=== PATIENT | female | born 1995 | race Caucasian/White ===

== ENCOUNTER 2020-07-03 14:25 | Inpatient (IN) ==
[2020-07-04] MEDS ORDERED: OXYTOCIN 30 UNITS/500 ML BAG IV PRN (07:41)
[2020-07-04] MEDS: LACTATED RINGER'S 1,000 ML IV PRN (07:49)
[2020-07-04 08:05] LABS: Hematocrit (blood only) 35.6 % (37-47); Hemoglobin 11.4 g/dL (12.0-16.0); Mean Corpuscular Volume 81.1 fL (80-100); Mean Platelet Volume 11.5 fL (7.4-10.4); Platelet Count 238 K/uL (130-400); RDW Coefficient of Variation 14.4 % (11.5-14.5); RDW Standard Deviation 42.9 fL (36.4-46.3); Red Blood Count 4.39 M/uL (4.2-5.4); White Blood Count 8.78 K/uL (4.8-10.8)
[2020-07-04] MEDS ORDERED: DINOPROSTONE 10 MG INSERT PV ONE (10:22)
--- NOTE | 2020-07-04 10:26 | Obstetrical Progress Note ---
Date of Service July 04, 2020 Assessment & Plan Admission and Anticipated Discharge Date Admission Date: July 04, 2020 Subjective Admit Note 24 F P1001 at 41 weeks admitted for post dates induction of labor. No complications. GBS is negative. Covid is negative. FHT Cat 1. Cervix is finger tip/50/-3/anterior/vertex/intact. Will place Cervidil for ripening. Discussed with patient. Results & Data ([facility]) Vital Signs (Past 12 Hours) Vital Signs Pulse Resp BP 07/04/20 07:42 18 07/04/20 07:27 113 H 118/71
--- NOTE | 2020-07-04 10:46 | Obstetrical Progress Note ---
Date of Service July 04, 2020 Assessment & Plan Admission and Anticipated Discharge Date Admission Date: July 04, 2020 Physical Exam Physical Exam: Cervidil 10 mg placed vaginally. FHT Cat 1. EFW 7.5 lbs. Results & Data ([facility]) Vital Signs (Past 12 Hours) Vital Signs Pulse Resp BP 07/04/20 07:42 18 07/04/20 07:27 113 H 118/71
--- NOTE | 2020-07-04 12:29 | Anesthesiology Consultation ---
Date of Service July 04, 2020 Assessment & Plan Chart Review Chart Review: Acceptable Risk for Surgery and Patient NOT seen in Pre Admission Testing Consults Requested none ASA ASA2 Proposed Anesthesia Anesthesia Type: Labor Epidural and CSE History Height/Weight Height: 5 ft 7 in Weight: 87.09 kg Allergies Allergy/AdvReac Type Severity Reaction Status Date / Time No Known Allergies Allergy Unknown Unverified 07/04/20 08:35 Medications Home Medications Medication Instructions Recorded Confirmed Last Taken prenat.vits,aaron,oac-zbyp-wmqju 1 tab PO DAILY 07/04/20 07/04/20 07/04/20 06:45 [ Vitamin] Exercise / Class Metabolic Activity II 4-5 Yardwork/Stairs/Walk up hill Past Anesthesia History No Hx of Anesthesia Complications and No Family Hx of Anesthesia Complications History of PONV No Hx of PONV and No Hx of Motion Sickness Social History Smoking Status: Never smoker Do You Dip or Chew Tobacco: No Hx Alcohol Use: No Hx Substance Use: No Physical Exam Vital Signs Last Vital Signs Temp 37.5 C 07/04/20 07:28 Pulse 113 H 07/04/20 07:27 Resp 18 07/04/20 07:42 BP 118/71 07/04/20 07:27 Testing Laboratory Results 07/04/20 07:48
[2020-07-05] MEDS: miSOPROStoL 50 MCG TAB PO SCH ×3 (00:26→10:17)
[2020-07-05] MEDS: LACTATED RINGER'S 1,000 ML IV PRN ×3 (08:13→18:15)
[2020-07-05] MEDS ORDERED: OXYTOCIN 30 UNITS/500 ML BAG IV PRN (08:16)
--- NOTE | 2020-07-05 08:16 | History & Physical Report ---
Date of Service July 05, 2020 Assessment & Plan (1) Post-term , 40-42 weeks of gestation: 24 yo at 41 wks, IOL since yesterday Cervical ripening with regular ctxs VSS afebrile FHR reassuring GBS neg Plan to start Oxytocin and then AROM Continue to monitor Admission and Anticipated Discharge Date Admission Date: July 04, 2020 History of Present Illness Primary Care Provider: NO PCP 24 yo at 41 wks, admitted yesterday for IOL for postdates Received Cervidil and PO cytotec Now she has regular ctxs but does not feel them No complaints Her has been uncomplicated GBS neg COVID testing negative Allergies Allergy/AdvReac Type Severity Reaction Status Date / Time No Known Allergies Allergy Unknown Unverified 07/04/20 08:35 Home Medications Medication Instructions Recorded Confirmed Type prenat.vits,aaron,zvb-uvcz-lnzza 1 tab PO DAILY 07/04/20 07/04/20 History [ Vitamin] Patient History Social History Smoking Status: Never smoker Second Hand Exposure: No; Do You Dip or Chew Tobacco: No; Hx Alcohol Use: No Hx Substance Use: No Preferred Language: Arabic Communication Ability: Effective Beliefs That Will Affect Care: None marital status: Current Living Situation: Spouse Feels Safe at Home: Yes Assistive Devices: Contacts and Glasses [employer] History h/o Chlamydia in 2019, treated and negative No h/o HSV, GC Review of Systems All systems reviewed & are unremarkable except as noted in HPI & below Physical Exam Constitutional: WD/WN, vitals as above well developed and well nourished Comfortably smiling Gastrointestinal (Abdomen): normal bowel sounds, soft, nontender, no hepatosplenomegaly (Gravid, mian 7-8 lb) Genitourinary: normal external appearance OB Exam Abdomen: + vertex Manual OB Exam: + cervical dilation 2 cm, + cervical effacement 30% and + station -2 OB Exam Monitor Tracing: + external uterine monitor used and + category I Results & Data ([facility]) Vital Signs (Past 12 Hours) Vital Signs Temp Pulse Resp BP 07/05/20 07:36 37.1 C 91 H 18 118/73 07/05/20 03:45 90 117/58 L 07/05/20 03:44 37.2 C 20 07/04/20 22:54 88 113/65 07/04/20 22:51 36.4 C L 20 Laboratory Results Lab Results 07/04/20 07/04/20 07/04/20 Range/Units 07:48 08:17 08:17 WBC 8.78 (4.8-10.8) K/uL RBC 4.39 (4.2-5.4) M/uL Hgb 11.4 L (12.0-16.0) g/dL Hct 35.6 L (37-47) % MCV 81.1 (80-100) fL MCH 26.0 (25-34) pg MCHC 32.0 (32-36) g/dL RDW Std Deviation 42.9 (36.4-46.3) fL RDW Coeff of Ajay 14.4 (11.5-14.5) % Plt Count 238 (130-400) K/uL MPV 11.5 H (7.4-10.4) fL COVID-19 [facility] SARS-CoV-2, RNA, NAAT NEGATIVE (NEGATIVE)
--- NOTE | 2020-07-05 12:56 | Obstetrical Progress Note ---
Date of Service July 05, 2020 Assessment & Plan Admission and Anticipated Discharge Date Admission Date: July 04, 2020 Subjective Patient is reevaluated No pain/ ctxs/ LOF/VB +FM's Pitocin is at 12 miu/min VE; 2-3 cm/ 50%/ -2, AROM'ed, clear fluid Continue to monitor closely Results & Data ([facility]) Vital Signs (Past 12 Hours) Vital Signs Temp Pulse Resp BP 07/05/20 11:52 92 H 110/73 07/05/20 07:36 37.1 C 91 H 18 118/73 07/05/20 03:45 90 117/58 L 07/05/20 03:44 37.2 C 20
[2020-07-05] MEDS ORDERED: BUPIVACAINE 0.25% 30 ML VIAL ONE ×2 (15:40→22:44)
[2020-07-05] MEDS ORDERED: ePHEDrine sulfate 50 MG/ML AMP ONE (15:40)
[2020-07-05] MEDS ORDERED: SODIUM CHLORIDE 0.9% INJ 10 ML VIAL ONE (15:40)
[2020-07-05] MEDS ORDERED: fentaNYL 2MCG/ML ROPIVACAINE 1.25MG/ML 100 ML BAG EPI ONE (15:41)
[2020-07-05] MEDS ORDERED: fentaNYL citrate 100 MCG/2 ML VIAL ONE (15:41)
[2020-07-05] MEDS ORDERED: NALOXONE HCL 0.4 MG/1 ML VIAL/CARP IV PRN (16:25)
[2020-07-05] MEDS ORDERED: diphenhydrAMINE 50 MG/ML VIAL IV PRN (16:25)
[2020-07-05] MEDS ORDERED: ePHEDrine sulfate 50 MG/ML AMP IV PRN (16:25)
[2020-07-05] MEDS ORDERED: ONDANSETRON INJ 2 MG/ML 2 ML VIAL IV PRN (16:25)
[2020-07-05] MEDS ORDERED: NALOXONE HCL 1 MG in SODIUM CHLORIDE 0.9% 1000ML 1,000 ML IV PRN (16:25)
[2020-07-05] MEDS ORDERED: fentaNYL 2MCG/ML ROPIVACAINE 1.25MG/ML 100 ML BAG EPI PRN (16:25)
--- NOTE | 2020-07-05 16:31 | Obstetrical Progress Note ---
Date of Service July 05, 2020 Assessment & Plan Admission and Anticipated Discharge Date Admission Date: July 04, 2020 Subjective Patient is reevaluated She received epidural for pain Comfortable now, plans to rest FHR categ I Ctxs q 1-3 min Continue to monitor closely Results & Data ([facility]) Vital Signs (Past 12 Hours) Vital Signs Temp Pulse Resp BP Pulse Ox 07/05/20 16:28 106 H 92 07/05/20 16:27 36.7 C 18 07/05/20 16:26 123 H 116/74 07/05/20 16:25 108 H 100 07/05/20 16:20 104 H 100 07/05/20 16:19 111 H 121/63 07/05/20 16:17 107 H 105/59 L 07/05/20 16:15 106 H 106/60 99 07/05/20 16:13 111 H 107/63 07/05/20 16:11 104 H 104/56 L 07/05/20 16:10 108 H 99 07/05/20 16:09 115 H 89 L 07/05/20 16:07 101 H 125/76 07/05/20 16:05 86 121/78 99 07/05/20 16:00 107 H 100 07/05/20 15:59 105 H 91 07/05/20 15:55 104 H 94 07/05/20 13:29 90 127/82 07/05/20 11:52 92 H 110/73 07/05/20 07:36 37.1 C 91 H 18 118/73
--- NOTE | 2020-07-05 19:57 | Obstetrical Progress Note ---
Date of Service July 05, 2020 Assessment & Plan Admission and Anticipated Discharge Date Admission Date: July 04, 2020 Subjective Patient is reevaluated She feels well, no complaints She took a nap VSS Afebrile FHR 130's, accel and increased variability after VE, scalp stimulation Cervix: 3-4 cm/ 70-80%/ -2, small caput Pitocin is at 18 miu /min ctxs q 2-3 min Continue to monitor Will try position changes Results & Data ([facility]) Vital Signs (Past 12 Hours) Vital Signs Temp Pulse Resp BP Pulse Ox 07/05/20 19:50 111 H 96 07/05/20 19:45 110 H 97 07/05/20 19:43 120 H 107/59 L 07/05/20 19:40 112 H 96 07/05/20 19:35 114 H 96 07/05/20 19:30 106 H 20 96 07/05/20 19:29 111 H 107/63 07/05/20 19:25 107 H 96 07/05/20 19:20 113 H 91 07/05/20 19:15 105 H 94 07/05/20 19:14 109 H 110/70 07/05/20 19:10 109 H 96 07/05/20 19:05 100 H 96 07/05/20 19:00 101 H 97 07/05/20 18:57 37.3 C 18 07/05/20 18:55 111 H 95 07/05/20 18:53 101 H 85 L 07/05/20 18:51 98 H 105/62 07/05/20 18:50 95 H 96 07/05/20 18:45 90 97 07/05/20 18:42 96 H 105/64 07/05/20 18:40 84 97 07/05/20 18:35 101 H 95 07/05/20 18:31 95 H 106/68 07/05/20 18:30 98 H 96 07/05/20 18:25 92 H 96 07/05/20 18:21 90 99/61 L 07/05/20 18:20 95 H 96 07/05/20 18:18 96 H 85 L 07/05/20 18:15 90 98 07/05/20 18:12 102 H 88 L 07/05/20 18:11 93 H 99/62 L 07/05/20 18:10 87 100 02/24/21 18:05 87 98 07/05/20 18:02 93 H 96/59 L 07/05/20 18:00 90 98 07/05/20 17:55 95 H 98 07/05/20 17:51 85 98/61 L 07/05/20 17:50 92 H 98 07/05/20 17:45 93 H 98 07/05/20 17:41 82 101/61 07/05/20 17:40 90 99 07/05/20 17:35 92 H 100 07/05/20 17:32 88 100/62 07/05/20 17:30 82 100 07/05/20 17:25 99 H 96 07/05/20 17:21 83 100/61 07/05/20 17:20 76 99 07/05/20 17:15 85 99 07/05/20 17:12 79 89 L 07/05/20 17:11 92/63 L 07/05/20 17:10 72 100 07/05/20 17:06 103 H 85 L 07/05/20 17:05 96 H 94 07/05/20 17:01 95 H 95/60 L 07/05/20 17:00 99 H 100 07/05/20 16:55 100 H 99 07/05/20 16:51 100 H 102/64 07/05/20 16:50 82 98 07/05/20 16:45 112 H 78 L 07/05/20 16:44 110 H 85 L 07/05/20 16:42 88 114/58 L 07/05/20 16:40 94 H 100 07/05/20 16:35 98 H 96 07/05/20 16:33 95 H 88 L 07/05/20 16:30 91 H 123/59 L 100 07/05/20 16:28 106 H 92 07/05/20 16:27 36.7 C 18 07/05/20 16:26 123 H 116/74 07/05/20 16:25 108 H 100 07/05/20 16:20 104 H 100 07/05/20 16:19 111 H 121/63 07/05/20 16:17 107 H 105/59 L 07/05/20 16:15 106 H 106/60 99 07/05/20 16:13 111 H 107/63 07/05/20 16:11 104 H 104/56 L 07/05/20 16:10 108 H 99 07/05/20 16:09 115 H 89 L 07/05/20 16:07 101 H 125/76 07/05/20 16:05 86 121/78 99 07/05/20 16:00 107 H 100 07/05/20 15:59 105 H 91 07/05/20 15:55 104 H 94 07/05/20 13:29 90 127/82 07/05/20 11:52 92 H 110/73
--- NOTE | 2020-07-05 21:45 | Obstetrical Progress Note ---
Date of Service July 05, 2020 Assessment & Plan Admission and Anticipated Discharge Date Admission Date: July 04, 2020 Subjective Patient feels rectal pressure VE; 8/ 70%, cervix swollen at anterior and right side, head at 0 to +1 with contraction, ant. fontanelle at 9 o'clock position FHR categ I Continue to monitor closely Results & Data ([facility]) Vital Signs (Past 12 Hours) Vital Signs Temp Pulse Resp BP Pulse Ox 07/05/20 21:40 112 H 97 07/05/20 21:35 106 H 95 07/05/20 21:30 102 H 20 95 07/05/20 21:28 98 H 107/64 07/05/20 21:25 113 H 95 07/05/20 21:20 105 H 96 07/05/20 21:15 102 H 97 07/05/20 21:14 106 H 107/69 07/05/20 21:10 99 H 96 07/05/20 21:05 100 H 96 07/05/20 21:00 37.2 C 100 H 20 96 07/05/20 20:59 100 H 124/77 07/05/20 20:55 105 H 97 07/05/20 20:50 99 H 96 07/05/20 20:45 97 H 92 07/05/20 20:43 99 H 131/80 07/05/20 20:41 102 H 84 L 07/05/20 20:40 98 H 95 07/05/20 20:35 94 H 96 07/05/20 20:30 93 H 20 95 07/05/20 20:28 96 H 97/57 L 07/05/20 20:25 101 H 96 07/05/20 20:20 97 H 96 07/05/20 20:15 109 H 95 07/05/20 20:14 115 H 115/74 07/05/20 20:10 105 H 96 07/05/20 20:05 102 H 95 07/05/20 20:00 126 H 20 123/69 93 07/05/20 19:55 108 H 94 07/05/20 19:50 111 H 96 07/05/20 19:45 110 H 97 07/05/20 19:43 120 H 107/59 L 07/05/20 19:40 112 H 96 07/05/20 19:35 114 H 96 07/05/20 19:30 106 H 20 96 07/05/20 19:29 111 H 107/63 07/05/20 19:25 107 H 96 07/05/20 19:20 113 H 91 07/05/20 19:15 105 H 94 07/05/20 19:14 109 H 110/70 07/05/20 19:10 109 H 96 07/05/20 19:05 100 H 96 07/05/20 19:00 101 H 97 07/05/20 18:57 37.3 C 18 07/05/20 18:55 111 H 95 07/05/20 18:53 101 H 85 L 07/05/20 18:51 98 H 105/62 07/05/20 18:50 95 H 96 07/05/20 18:45 90 97 07/05/20 18:42 96 H 105/64 07/05/20 18:40 84 97 07/05/20 18:35 101 H 95 07/05/20 18:31 95 H 106/68 07/05/20 18:30 98 H 96 07/05/20 18:25 92 H 96 07/05/20 18:21 90 99/61 L 07/05/20 18:20 95 H 96 07/05/20 18:18 96 H 85 L 07/05/20 18:15 90 98 07/05/20 18:12 102 H 88 L 07/05/20 18:11 93 H 99/62 L 07/05/20 18:10 87 100 07/05/20 18:05 87 98 07/05/20 18:02 93 H 96/59 L 07/05/20 18:00 90 98 07/05/20 17:55 95 H 98 07/05/20 17:51 85 98/61 L 07/05/20 17:50 92 H 98 07/05/20 17:45 93 H 98 07/05/20 17:41 82 101/61 07/05/20 17:40 90 99 07/05/20 17:35 92 H 100 07/05/20 17:32 88 100/62 07/05/20 17:30 82 100 07/05/20 17:25 99 H 96 07/05/20 17:21 83 100/61 07/05/20 17:20 76 99 07/05/20 17:15 85 99 07/05/20 17:12 79 89 L 07/05/20 17:11 92/63 L 07/05/20 17:10 72 100 07/05/20 17:06 103 H 85 L 07/05/20 17:05 96 H 94 07/05/20 17:01 95 H 95/60 L 07/05/20 17:00 99 H 100 07/05/20 16:55 100 H 99 07/05/20 16:51 100 H 102/64 07/05/20 16:50 82 98 07/05/20 16:45 112 H 78 L 07/05/20 16:44 110 H 85 L 07/05/20 16:42 88 114/58 L 07/05/20 16:40 94 H 100 07/05/20 16:35 98 H 96 07/05/20 16:33 95 H 88 L 07/05/20 16:30 91 H 123/59 L 100 07/05/20 16:28 106 H 92 07/05/20 16:27 36.7 C 18 07/05/20 16:26 123 H 116/74 07/05/20 16:25 108 H 100 07/05/20 16:20 104 H 100 07/05/20 16:19 111 H 121/63 07/05/20 16:17 107 H 105/59 L 07/05/20 16:15 106 H 106/60 99 07/05/20 16:13 111 H 107/63 07/05/20 16:11 104 H 104/56 L 07/05/20 16:10 108 H 99 07/05/20 16:09 115 H 89 L 07/05/20 16:07 101 H 125/76 07/05/20 16:05 86 121/78 99 07/05/20 16:00 107 H 100 07/05/20 15:59 105 H 91 07/05/20 15:55 104 H 94 07/05/20 13:29 90 127/82 07/05/20 11:52 92 H 110/73
[2020-07-05] MEDS ORDERED: MINERAL OIL 30 ML UDC ONE (23:16)
--- NOTE | 2020-07-05 23:44 | Obstetrical Progress Note ---
Date of Service July 05, 2020 Assessment & Plan Admission and Anticipated Discharge Date Admission Date: July 04, 2020 Subjective Patient felt pressure and wanted to push She has been pushing for the last hour FHR categ I, except early decels ( some with late component) with ctxs but otherwise good variability VE; 10/100%/+2, OA Continue to monitor closely and anticipate Results & Data ([facility] [place]) Vital Signs (Past 12 Hours) Vital Signs Temp Pulse Resp BP Pulse Ox 07/05/20 23:40 134 H 99 07/05/20 23:38 126 H 81 L 07/05/20 23:37 153 H 117/84 07/05/20 23:35 37.6 C H 137 H 95 07/05/20 23:32 112 H 83 L 07/05/20 23:30 143 H 18 100 07/05/20 23:25 124 H 99 07/05/20 23:21 118 H 129/56 L 07/05/20 23:20 96 H 79 L 07/05/20 23:15 165 H 84 L 07/05/20 23:10 125 H 85 L 07/05/20 23:09 118 H 88 L 07/05/20 23:06 122 H 116/72 07/05/20 23:05 127 H 81 L 07/05/20 23:00 37.2 C 113 H 20 84 L 07/05/20 22:58 114 H 83 L 07/05/20 22:55 110 H 97 07/05/20 22:53 109 H 110/77 78 L 07/05/20 22:51 108 H 104/71 07/05/20 22:50 134 H 98 07/05/20 22:47 116 H 172/66 H 07/05/20 22:45 113 H 98 07/05/20 22:43 121 H 119/71 07/05/20 22:42 131 H 87 L 07/05/20 22:40 123 H 98 07/05/20 22:35 128 H 96 07/05/20 22:30 130 H 18 97 07/05/20 22:29 144 H 125/85 07/05/20 22:25 119 H 99 07/05/20 22:20 117 H 94 07/05/20 22:15 121 H 96 07/05/20 22:13 120 H 99/50 L 07/05/20 22:11 127 H 86 L 07/05/20 22:10 131 H 96 07/05/20 22:05 118 H 97 07/05/20 22:00 106 H 18 96 07/05/20 21:59 111 H 117/73 07/05/20 21:55 105 H 97 07/05/20 21:50 119 H 96 07/05/20 21:45 111 H 93 07/05/20 21:44 100 H 117/74 07/05/20 21:40 112 H 97 07/05/20 21:35 106 H 95 07/05/20 21:30 102 H 20 95 07/05/20 21:28 98 H 107/64 07/05/20 21:25 113 H 95 07/05/20 21:20 105 H 96 07/05/20 21:15 102 H 97 07/05/20 21:14 106 H 107/69 07/05/20 21:10 99 H 96 07/05/20 21:05 100 H 96 07/05/20 21:00 37.2 C 100 H 20 96 07/05/20 20:59 100 H 124/77 07/05/20 20:55 105 H 97 07/05/20 20:50 99 H 96 07/05/20 20:45 97 H 92 07/05/20 20:43 99 H 131/80 07/05/20 20:41 102 H 84 L 07/05/20 20:40 98 H 95 07/05/20 20:35 94 H 96 07/05/20 20:30 93 H 20 95 07/05/20 20:28 96 H 97/57 L 07/05/20 20:25 101 H 96 07/05/20 20:20 97 H 96 07/05/20 20:15 109 H 95 07/05/20 20:14 115 H 115/74 07/05/20 20:10 105 H 96 07/05/20 20:05 102 H 95 07/05/20 20:00 126 H 20 123/69 93 07/05/20 19:55 108 H 94 07/05/20 19:50 111 H 96 07/05/20 19:45 110 H 97 07/05/20 19:43 120 H 107/59 L 07/05/20 19:40 112 H 96 07/05/20 19:35 114 H 96 07/05/20 19:30 106 H 20 96 07/05/20 19:29 111 H 107/63 07/05/20 19:25 107 H 96 07/05/20 19:20 113 H 91 07/05/20 19:15 105 H 94 07/05/20 19:14 109 H 110/70 07/05/20 19:10 109 H 96 07/05/20 19:05 100 H 96 07/05/20 19:00 101 H 97 07/05/20 18:57 37.3 C 18 07/05/20 18:55 111 H 95 07/05/20 18:53 101 H 85 L 07/05/20 18:51 98 H 105/62 07/05/20 18:50 95 H 96 07/05/20 18:45 90 97 07/05/20 18:42 96 H 105/64 07/05/20 18:40 84 97 07/05/20 18:35 101 H 95 07/05/20 18:31 95 H 106/68 07/05/20 18:30 98 H 96 07/05/20 18:25 92 H 96 07/05/20 18:21 90 99/61 L 07/05/20 18:20 95 H 96 07/05/20 18:18 96 H 85 L 07/05/20 18:15 90 98 07/05/20 18:12 102 H 88 L 07/05/20 18:11 93 H 99/62 L 07/05/20 18:10 87 100 07/05/20 18:05 87 98 07/05/20 18:02 93 H 96/59 L 07/05/20 18:00 90 98 07/05/20 17:55 95 H 98 07/05/20 17:51 85 98/61 L 07/05/20 17:50 92 H 98 07/05/20 17:45 93 H 98 07/05/20 17:41 82 101/61 07/05/20 17:40 90 99 07/05/20 17:35 92 H 100 07/05/20 17:32 88 100/62 07/05/20 17:30 82 100 07/05/20 17:25 99 H 96 07/05/20 17:21 83 100/61 07/05/20 17:20 76 99 07/05/20 17:15 85 99 07/05/20 17:12 79 89 L 07/05/20 17:11 92/63 L 07/05/20 17:10 72 100 07/05/20 17:06 103 H 85 L 07/05/20 17:05 96 H 94 07/05/20 17:01 95 H 95/60 L 07/05/20 17:00 99 H 100 07/05/20 16:55 100 H 99 07/05/20 16:51 100 H 102/64 07/05/20 16:50 82 98 07/05/20 16:45 112 H 78 L 07/05/20 16:44 110 H 85 L 07/05/20 16:42 88 114/58 L 07/05/20 16:40 94 H 100 07/05/20 16:35 98 H 96 07/05/20 16:33 95 H 88 L 07/05/20 16:30 91 H 123/59 L 100 07/05/20 16:28 106 H 92 07/05/20 16:27 36.7 C 18 07/05/20 16:26 123 H 116/74 07/05/20 16:25 108 H 100 07/05/20 16:20 104 H 100 07/05/20 16:19 111 H 121/63 07/05/20 16:17 107 H 105/59 L 07/05/20 16:15 106 H 106/60 99 07/05/20 16:13 111 H 107/63 07/05/20 16:11 104 H 104/56 L 07/05/20 16:10 108 H 99 07/05/20 16:09 115 H 89 L 07/05/20 16:07 101 H 125/76 07/05/20 16:05 86 121/78 99 07/05/20 16:00 107 H 100 07/05/20 15:59 105 H 91 07/05/20 15:55 104 H 94 07/05/20 13:29 90 127/82 07/05/20 11:52 92 H 110/73
--- NOTE | 2020-07-06 00:34 | Obstetrical Progress Note ---
Date of Service July 06, 2020 Assessment & Plan Admission and Anticipated Discharge Date Admission Date: July 04, 2020 Subjective Patient has been pushing with good efforts Vomited x3, received IV zofran and feels better Temp: 100 F, fees warm during VE FHR 170's between ctxs Maternal pulse 120's Suspected intraamniotic infection Plan to start IV AB's and continue pushing Results & Data ([facility]) Vital Signs (Past 12 Hours) Vital Signs Temp Pulse Resp BP Pulse Ox 07/06/20 00:27 124 H 96 07/06/20 00:22 124 H 97 07/06/20 00:20 127 H 120/81 07/06/20 00:17 121 H 97 07/06/20 00:15 37.8 C H 20 07/06/20 00:12 140 H 99 07/06/20 00:07 135 H 95 07/06/20 00:02 123 H 99 07/06/20 00:01 132 H 81 L 07/06/20 00:00 20 07/05/20 23:57 116 H 93 07/05/20 23:52 128 H 98 07/05/20 23:51 123 H 123/81 07/05/20 23:50 115 H 85 L 07/05/20 23:46 131 H 97 07/05/20 23:43 117 H 86 L 07/05/20 23:40 134 H 99 07/05/20 23:38 126 H 81 L 07/05/20 23:37 153 H 117/84 07/05/20 23:35 37.6 C H 137 H 95 07/05/20 23:32 112 H 83 L 07/05/20 23:30 143 H 18 100 07/05/20 23:25 124 H 99 07/05/20 23:21 118 H 129/56 L 07/05/20 23:20 96 H 79 L 07/05/20 23:15 165 H 84 L 07/05/20 23:10 125 H 85 L 07/05/20 23:09 118 H 88 L 07/05/20 23:06 122 H 116/72 07/05/20 23:05 127 H 81 L 07/05/20 23:00 37.2 C 113 H 20 84 L 07/05/20 22:58 114 H 83 L 07/05/20 22:55 110 H 97 07/05/20 22:53 109 H 110/77 78 L 07/05/20 22:51 108 H 104/71 07/05/20 22:50 134 H 98 07/05/20 22:47 116 H 172/66 H 07/05/20 22:45 113 H 98 07/05/20 22:43 121 H 119/71 07/05/20 22:42 131 H 87 L 07/05/20 22:40 123 H 98 07/05/20 22:35 128 H 96 07/05/20 22:30 130 H 18 97 07/05/20 22:29 144 H 125/85 07/05/20 22:25 119 H 99 07/05/20 22:20 117 H 94 07/05/20 22:15 121 H 96 07/05/20 22:13 120 H 99/50 L 07/05/20 22:11 127 H 86 L 07/05/20 22:10 131 H 96 07/05/20 22:05 118 H 97 07/05/20 22:00 106 H 18 96 07/05/20 21:59 111 H 117/73 07/05/20 21:55 105 H 97 07/05/20 21:50 119 H 96 07/05/20 21:45 111 H 93 07/05/20 21:44 100 H 117/74 07/05/20 21:40 112 H 97 07/05/20 21:35 106 H 95 07/05/20 21:30 102 H 20 95 07/05/20 21:28 98 H 107/64 07/05/20 21:25 113 H 95 07/05/20 21:20 105 H 96 07/05/20 21:15 102 H 97 07/05/20 21:14 106 H 107/69 07/05/20 21:10 99 H 96 07/05/20 21:05 100 H 96 07/05/20 21:00 37.2 C 100 H 20 96 07/05/20 20:59 100 H 124/77 07/05/20 20:55 105 H 97 07/05/20 20:50 99 H 96 07/05/20 20:45 97 H 92 07/05/20 20:43 99 H 131/80 07/05/20 20:41 102 H 84 L 07/05/20 20:40 98 H 95 07/05/20 20:35 94 H 96 07/05/20 20:30 93 H 20 95 07/05/20 20:28 96 H 97/57 L 07/05/20 20:25 101 H 96 07/05/20 20:20 97 H 96 07/05/20 20:15 109 H 95 07/05/20 20:14 115 H 115/74 07/05/20 20:10 105 H 96 07/05/20 20:05 102 H 95 07/05/20 20:00 126 H 20 123/69 93 07/05/20 19:55 108 H 94 07/05/20 19:50 111 H 96 07/05/20 19:45 110 H 97 07/05/20 19:43 120 H 107/59 L 07/05/20 19:40 112 H 96 07/05/20 19:35 114 H 96 07/05/20 19:30 106 H 20 96 07/05/20 19:29 111 H 107/63 07/05/20 19:25 107 H 96 07/05/20 19:20 113 H 91 07/05/20 19:15 105 H 94 07/05/20 19:14 109 H 110/70 07/05/20 19:10 109 H 96 07/05/20 19:05 100 H 96 07/05/20 19:00 101 H 97 07/05/20 18:57 37.3 C 18 07/05/20 18:55 111 H 95 07/05/20 18:53 101 H 85 L 07/05/20 18:51 98 H 105/62 07/05/20 18:50 95 H 96 07/05/20 18:45 90 97 07/05/20 18:42 96 H 105/64 07/05/20 18:40 84 97 07/05/20 18:35 101 H 95 07/05/20 18:31 95 H 106/68 07/05/20 18:30 98 H 96 07/05/20 18:25 92 H 96 07/05/20 18:21 90 99/61 L 07/05/20 18:20 95 H 96 07/05/20 18:18 96 H 85 L 07/05/20 18:15 90 98 07/05/20 18:12 102 H 88 L 07/05/20 18:11 93 H 99/62 L 07/05/20 18:10 87 100 07/05/20 18:05 87 98 07/05/20 18:02 93 H 96/59 L 07/05/20 18:00 90 98 07/05/20 17:55 95 H 98 07/05/20 17:51 85 98/61 L 07/05/20 17:50 92 H 98 07/05/20 17:45 93 H 98 07/05/20 17:41 82 101/61 07/05/20 17:40 90 99 07/05/20 17:35 92 H 100 07/05/20 17:32 88 100/62 07/05/20 17:30 82 100 07/05/20 17:25 99 H 96 07/05/20 17:21 83 100/61 07/05/20 17:20 76 99 07/05/20 17:15 85 99 07/05/20 17:12 79 89 L 07/05/20 17:11 92/63 L 07/05/20 17:10 72 100 07/05/20 17:06 103 H 85 L 07/05/20 17:05 96 H 94 07/05/20 17:01 95 H 95/60 L 07/05/20 17:00 99 H 100 07/05/20 16:55 100 H 99 07/05/20 16:51 100 H 102/64 07/05/20 16:50 82 98 07/05/20 16:45 112 H 78 L 07/05/20 16:44 110 H 85 L 07/05/20 16:42 88 114/58 L 07/05/20 16:40 94 H 100 07/05/20 16:35 98 H 96 07/05/20 16:33 95 H 88 L 07/05/20 16:30 91 H 123/59 L 100 07/05/20 16:28 106 H 92 07/05/20 16:27 36.7 C 18 07/05/20 16:26 123 H 116/74 07/05/20 16:25 108 H 100 07/05/20 16:20 104 H 100 07/05/20 16:19 111 H 121/63 07/05/20 16:17 107 H 105/59 L 07/05/20 16:15 106 H 106/60 99 07/05/20 16:13 111 H 107/63 07/05/20 16:11 104 H 104/56 L 07/05/20 16:10 108 H 99 07/05/20 16:09 115 H 89 L 07/05/20 16:07 101 H 125/76 07/05/20 16:05 86 121/78 99 07/05/20 16:00 107 H 100 07/05/20 15:59 105 H 91 07/05/20 15:55 104 H 94 07/05/20 13:29 90 127/82
[2020-07-06] MEDS: LACTATED RINGER'S 1,000 ML IV PRN (00:35)
[2020-07-06] MEDS: ceFAZolin 2000MG 2,000 MG/15 ML SYR IV SCH ×3 (00:43→17:07)
[2020-07-06] MEDS: CLINDAMYCIN 900 MG in DEXTROSE 5% 50 ML IV SCH ×3 (00:47→17:46)
[2020-07-06] MEDS ORDERED: bisacodyL 10 MG SUPP PR PRN (02:30)
[2020-07-06] MEDS ORDERED: SUPERCREAM 0.870% 15 GM JAR EXT PRN (02:30)
[2020-07-06] MEDS ORDERED: DIPHTHERIA/TETANUS/PERTUSSIS 0.5 ML SYR/VIAL IM ONE (02:30)
[2020-07-06] MEDS ORDERED: oxyCODONE/ACETAMINOPHEN 5mg/325mg TAB PO PRN (02:30)
[2020-07-06] MEDS ORDERED: MEASLES, MUMPS & RUBELLA VIRUS VIAL SQ ONE (02:30)
[2020-07-06] MEDS ORDERED: ACETAMINOPHEN 325 MG TAB PO PRN (02:30)
[2020-07-06] MEDS ORDERED: BENZOCAINE 20% AER SPR 82.5 GM CAN EXT PRN (02:30)
[2020-07-06] MEDS ORDERED: HYDROCORTISONE ACETATE 25 MG SUPP PR PRN (02:30)
[2020-07-06] MEDS ORDERED: OXYTOCIN 30 UNITS/500 ML BAG IV PRN (02:30)
--- NOTE | 2020-07-06 02:59 | Delivery Summary ---
DATE OF OPERATION: 07/06/2020 TIME OF DELIVERY OF BABY: 01:57 a.m. DETAILS OF DELIVERY: The patient was found to be fully dilated and desired to push. She pushed for about 3 hours and delivered the head in direct occiput posterior position. Baby's face was up and shoulders were delivered with minimal traction. There was a nuchal cord around the neck x2. Those were loose and they were reduced. Baby was handed to the mother where mouth and nose were suctioned. Cord was clamped x2 and cut. Baby was handed off to waiting pediatric team. Cord blood was obtained. Vagina and perineum were checked for lacerations. There was a second-degree perineal laceration, which was extending into the right vaginal wall. Rectal exam was done. It was confirmed to be second degree, good sphincter tone was noted. The perineal body muscles were brought together with 2-0 Vicryl with [id number] stitches x3 and then the vagina was repaired with 2-0 Vicryl in a running locked fashion, skin in a subcuticular fashion. The placenta was found to be in the vagina, delivered spontaneous as intact and complete. Uterus was explored, found to be full of clots. They were emptied. About 300 mL of clots were emptied. Fundus was massaged. IV Pitocin was started and it firmed up. The vagina was checked again. There was oozing on the middle of the repair. It was repaired with 2-0 Vicryl and then Caesar powder was applied to prevent future oozing. Excellent hemostasis was achieved. Mom and baby tolerated the procedure well. Sponge, lap, needle count was correct x2. Baby was a viable male infant, Apgars were 3/6/10 at 1st, 5th and 10th minutes respectively. Weight was 3708 gr. No complications happened. I was present during whole procedure. I attest to the content of the Intraoperative Record and any orders documented therein. Any exceptions are noted below. VERND
[2020-07-06] MEDS: IBUPROFEN 600 MG TAB PO PRN ×3 (03:16→20:53)
--- NOTE | 2020-07-06 04:14 | Anesthesia Procedure Note ---
Date of Service July 06, 2020 Anesthesia Post Epidural Note Vital Signs Vital Signs: Temp Pulse Resp BP Pulse Ox 37.9 C H 99 H 18 105/75 99 07/06/20 01:13 07/06/20 04:12 07/06/20 03:50 07/06/20 04:12 07/06/20 02:22 Pain Intensity Right Abdomen: Pain Intensity: 0 Notes Mental Status: alert / awake / arousable Nausea / Vomiting: adequately controlled Pain: adequately controlled Airway Patency, RR, SpO2: stable & adequate BP & HR: stable & adequate Hydration State: stable & adequate Neuraxial Anesthesia: was administered and sensory block is resolving Anesthetic Complications: no major complications apparent and Pt Satisfied with anesthetic care Epidural: Removed without complications and With tip intact
[2020-07-06] MEDS ORDERED: FERROUS SULFATE 325 MG TAB PO SCH (08:00)
[2020-07-06] MEDS: PRENATAL VITAMIN 1 TAB PO SCH (08:58)
[2020-07-06] MEDS: DOCUSATE SODIUM 100 MG CAP PO SCH ×2 (08:58→20:53)
[2020-07-06] MEDS ORDERED: Nursing to Pharmacy Communication SCH (23:30)
[2020-07-07] MEDS: ceFAZolin 2000MG 2,000 MG/15 ML SYR IV SCH (00:40)
[2020-07-07] MEDS: CLINDAMYCIN 900 MG in DEXTROSE 5% 50 ML IV SCH (00:44)
[2020-07-07] MEDS: IBUPROFEN 600 MG TAB PO PRN ×2 (04:46→14:03)
[2020-07-07 06:15] LABS: Hemoglobin 8.8 g/dL (12.0-16.0); Mean Corpuscular Hemoglobin 26.2 pg (25-34); Mean Corpuscular Hgb Conc 32.6 g/dL (32-36); Mean Corpuscular Volume 80.4 fL (80-100); Mean Platelet Volume 11.3 fL (7.4-10.4); Platelet Count 236 K/uL (130-400); RDW Coefficient of Variation 14.9 % (11.5-14.5); RDW Standard Deviation 43.7 fL (36.4-46.3); Red Blood Count 3.36 M/uL (4.2-5.4); White Blood Count 18.11 K/uL (4.8-10.8)
[2020-07-07] MEDS: DOCUSATE SODIUM 100 MG CAP PO SCH ×2 (07:39→20:47)
[2020-07-07] MEDS: PRENATAL VITAMIN 1 TAB PO SCH (07:40)
--- NOTE | 2020-07-07 08:03 | Obstetrical Progress Note ---
Date of Service July 07, 2020 Assessment & Plan Admission and Anticipated Discharge Date Admission Date: July 04, 2020 Subjective Patient is seen and examined. She feels well, no complaints. Ambulating without dizziness Voiding without difficulty Tolerating regular diet with out N&V Bleeding is minimal No fever/ chills/ CP/ SOB/ N&V/ Leg pain Breast feeding without problems Vital Signs Temp Pulse Resp BP Pulse Ox 07/07/20 04:45 36.4 C L 88 16 93/58 L 98 07/07/20 00:10 36.5 C 84 17 94/58 L 97 07/06/20 19:45 36.6 C 92 H 20 106/69 07/06/20 15:30 36.7 C 110 H 20 115/66 99 07/06/20 12:18 37 C 96 H 114/72 99 Intake and Output 07/06/20 07/07/20 07/07/20 22:59 06:59 14:59 Intake Total 56 / 168 56 / 168 Balance 56 / 168 56 / 168 Intake: IV 56 / 168 56 / 168 Cleocin 900 mg In D5w 50 ml @ 56 / 168 56 / 168 112 mls/hr IV Q8H [facility] Rx#: [id number] Lab Results 07/04/20 07/04/20 07/04/20 Range/Units 07:48 08:17 08:17 WBC 8.78 (4.8-10.8) K/uL RBC 4.39 (4.2-5.4) M/uL Hgb 11.4 L (12.0-16.0) g/dL Hct 35.6 L (37-47) % MCV 81.1 (80-100) fL MCH 26.0 (25-34) pg MCHC 32.0 (32-36) g/dL RDW Std Deviation 42.9 (36.4-46.3) fL RDW Coeff of Ajay 14.4 (11.5-14.5) % Plt Count 238 (130-400) K/uL MPV 11.5 H (7.4-10.4) fL COVID-19 Eval [facility] SARS-CoV-2, RNA, NAAT NEGATIVE (NEGATIVE) 07/07/20 Range/Units 05:52 WBC 18.11 H (4.8-10.8) K/uL RBC 3.36 L (4.2-5.4) M/uL Hgb 8.8 L (12.0-16.0) g/dL Hct 27.0 L (37-47) % MCV 80.4 (80-100) fL MCH 26.2 (25-34) pg MCHC 32.6 (32-36) g/dL RDW Std Deviation 43.7 (36.4-46.3) fL RDW Coeff of Ajay 14.9 H (11.5-14.5) % Plt Count 236 (130-400) K/uL MPV 11.3 H (7.4-10.4) fL COVID-19 Eval Order SARS-CoV-2, RNA, NAAT (NEGATIVE) PE: General: Alert, orientedx3, NAD Abd: soft, NT, fundus firm, below Umbilicus Perineum intact, Lochia rubra minimal Ext; NT, no edema AP: 24 yo s/p , ppd# 1 VSS Afebrile doing well Anemic, asymptomatic Will increase iron to bid Continue routine care All questions were answered D/C home tomorrow Results & Data ([facility]) Vital Signs (Past 12 Hours) Vital Signs Temp Pulse Resp BP Pulse Ox 07/07/20 04:45 36.4 C L 88 16 93/58 L 98 07/07/20 00:10 36.5 C 84 17 94/58 L 97
[2020-07-07] MEDS: FERROUS SULFATE 325 MG TAB PO SCH ×2 (08:20→17:05)
[2020-07-07] MEDS ORDERED: bisacodyL 5 MG TABEC PO SCH (20:00)
[2020-07-08] MEDS: IBUPROFEN 600 MG TAB PO PRN ×2 (00:56→06:43)
[2020-07-08 06:36] LABS: Basophils # (auto) 0.03 K/uL (0-0.2); Basophils % (auto) 0.2 %; Eosinophils # (auto) 0.17 K/uL (0-0.5); Eosinophils % (auto) 1.4 %; Hemoglobin 9.1 g/dL (12.0-16.0); Immature Granulocytes # (auto) 0.05 K/uL (0.00-0.02); Immature Granulocytes % (auto) 0.4 %; Lymphocytes # (auto) 2.37 K/uL (1.2-3.4); Lymphocytes % (auto) 19.1 %; Mean Corpuscular Hemoglobin 26.3 pg (25-34); Mean Corpuscular Hgb Conc 32.5 g/dL (32-36); Mean Corpuscular Volume 80.9 fL (80-100); Mean Platelet Volume 10.9 fL (7.4-10.4); Monocytes # (auto) 0.81 K/uL (0.11-0.59); Monocytes % (auto) 6.5 %; Neutrophils # (auto) 8.95 K/uL (1.4-6.5); Neutrophils % (auto) 72.4 %; Platelet Count 249 K/uL (130-400); RDW Coefficient of Variation 14.9 % (11.5-14.5); RDW Standard Deviation 43.8 fL (36.4-46.3); Red Blood Count 3.46 M/uL (4.2-5.4); White Blood Count 12.38 K/uL (4.8-10.8)
[2020-07-08] MEDS: PRENATAL VITAMIN 1 TAB PO SCH (09:16)
[2020-07-08] MEDS: DOCUSATE SODIUM 100 MG CAP PO SCH (09:16)
[2020-07-08] MEDS: FERROUS SULFATE 325 MG TAB PO SCH (09:16)
--- NOTE | 2020-07-08 10:37 | Obstetrical Progress Note ---
Date of Service July 08, 2020 Assessment & Plan (1) Normal course: PPd #2 pt doing well dsich home with instructions Subjective Ambulation: ambulating normally Voiding: no voiding problems Passing Gas:: Yes Diet Tolerance:: regular diet Lochia:: Small Feeding Type:: breast feeding Review of Systems All systems reviewed & are unremarkable except as noted in HPI & below Physical Exam Constitutional WD/WN, vitals as above well developed and well nourished Eyes PERRL, conjunctivae normal, anicteric sclerae Neck trachea midline, no thyromegaly Respiratory normal respiratory effort, lungs clear to auscultation Auscultation: no crackles, no rales and no wheezes Cardiovascular RRR, no murmur, no edema Gastrointestinal (Abdomen) normal bowel sounds, soft, nontender, no hepatosplenomegaly Uterus is below umbilicus Musculoskeletal no cyanosis or clubbing, extremities motor strength 5/5 Skin no rashes, warm and dry Neurologic patellar DTR's 2+ bilat, sensation intact Psychiatric A+Ox3, euthymic affect Genitourinary normal external appearance Results & Data ([facility]) Vital Signs (Past 12 Hours) Vital Signs Temp Pulse Resp BP Pulse Ox 07/08/20 08:45 36.8 C 103 H 18 124/87 07/08/20 00:40 36.4 C L 84 17 112/72 98
== END 2020-07-08 13:35 | disposition home or self-care (01) | DRG 807 ==
LOC: 4S1 07-04 07:14 → 4S2 07-06 04:51

== ENCOUNTER 2023-02-27 07:10 | Inpatient (IN) ==
[2023-02-27] MEDS ORDERED: OXYTOCIN 30 UNITS/500 ML BAG IV PRN ×3 (08:23→18:21)
[2023-02-27] MEDS ORDERED: LIDOCAINE 1% LOCAL 20 ML VIAL INFIL PRN (08:23)
--- NOTE | 2023-02-27 08:28 | History & Physical Report ---
Date of Service February 27, 2023 Assessment & Plan (1) Post-term , 40-42 weeks of gestation: Plan: 27-year-old -0-0-1 at 40 weeks and 5 days of gestation presenting today for scheduled induction of labor for postdates, Vital signs stable afebrile, heart rate reassuring, GBS negative, No medical problems, Cervix unfavorable, Plan to admit, labs, Garrido balloon for mechanical dilatation of cervix with IV oxytocin, Continue to monitor, All questions were answered. Admission and Anticipated Discharge Date Admission Date: February 27, 2023 History of Present Illness Primary Care Provider: NO PCP Patient is a 27-year-old -0-0-1 at 40 weeks and 5 days of gestation who was scheduled for induction of labor for postdates. She has no complaints. She denies contractions, leakage of fluid, vaginal bleeding. She reports good movements. Her has been uncomplicated, GBS negative. Allergies Allergy/AdvReac Type Severity Reaction Status Date / Time No Known Allergies Allergy Unknown Unverified 02/27/23 07:30 Home Medications Medication Instructions Recorded Confirmed Type prenat.vits,aaron,[id number] 1 tab PO DAILY 07/04/20 02/27/23 History ferrous sulfate 325 mg (65 mg 325 mg PO BID 02/27/23 02/27/23 History iron) tablet Patient History Surgical History History of surgery on arm History of tonsillectomy and adenoidectomy Social History Smoking Status: Never smoker Second Hand Exposure: No; Do You Dip or Chew Tobacco: No; Hx Alcohol Use: No Hx Substance Use: No Preferred Language: Guatemalan Communication Ability: Effective Rivet Sticker Required: No Beliefs That Will Affect Care: None marital status: Current Living Situation: Spouse Other Information That Helps Us Care for You: No Feels Safe at Home: Yes Safety Concerns: Feels Safe At This Time Assistive Devices: None OB History Full-term in 2020, direct OP, 8 pounds 2 ounces [employer] History No history of STDs, no history of herpes, chlamydia, gonorrhea Review of Systems as per Subjective / HPI Physical Exam Constitutional: WD/WN, vitals as above Gastrointestinal (Abdomen): normal bowel sounds, soft, nontender, no hepatosplenomegaly (Gravid) Genitourinary: normal external appearance OB Exam Abdomen: + vertex Manual OB Exam: + cervical dilation 1 cm (1-2) and + cervical effacement 40% OB Exam Monitor Tracing: + external uterine monitor used and + category I Results & Data Vital Signs (Past 12 Hours) Vital Signs Temp Pulse Resp BP 02/27/23 07:23 37.1 C 98 H 20 131/78
[2023-02-27 08:51] LABS: Hematocrit (blood only) 34.2 % (37.0-47.0); Hemoglobin 11.2 g/dl (12.0-16.0); Mean Corpuscular Hemoglobin 26.4 pg (25.0-34.0); Mean Corpuscular Hgb Conc 32.7 g/dL (32.0-36.0); Mean Corpuscular Volume 80.5 fL (80.0-100.0); Mean Platelet Volume 11.4 fL (9.4-12.4); Platelet Count 223 K/uL (130-400); RDW Coefficient of Variation 16.3 % (11.5-14.5); RDW Standard Deviation 47.8 fL (36.4-46.3); Red Blood Count 4.25 M/uL (4.20-5.40); White Blood Count 9.29 K/ul (4.8-10.8)
--- NOTE | 2023-02-27 09:00 | Obstetrical Progress Note ---
Date of Service February 27, 2023 Assessment & Plan Admission and Anticipated Discharge Date Admission Date: February 27, 2023 Subjective Garrido balloon is inserted without difficulty and inflated with 40 m of sterile water Plan to start Oxytocin per protocol and continue to monitor Results & Data Vital Signs (Past 12 Hours) Vital Signs Temp Pulse Resp BP 02/27/23 07:23 37.1 C 98 H 20 131/78
[2023-02-27 09:08] LABS: Alanine Aminotransferase 9 U/L (7-52); Albumin Globulin Ratio 1.3 (0.9-2); Albumin Level 3.5 gm/dl (3.4-5.0); Alkaline Phosphatase 232 U/L (34-104); Anion Gap 7 (3-11); Aspartate Aminotransferase 15 U/L (13-39); Bilirubin,Total 0.4 mg/dl (0.2-1.0); Blood Urea Nitrogen 8 mg/dl (6-23); Calcium 9.3 mg/dl (8.6-10.3); Carbon Dioxide 24 mmol/L (21-32); Chloride 107 mmol/L (98-107); Creatinine Clr Calc Pharmacy 193.9 ml/min; Est GFR (African American) > 150.0 ml/min; Est GFR (Non-African American) 130.8 ml/min; Globulin 2.8 gm/dl (2.5-4.0); Glucose 77 mg/dl (70-99(Fasting)); Potassium 3.6 mmol/L (3.5-5.1); Sodium 138 mmol/L (136-145); Total Protein 6.3 gm/dl (6.0-8.3)
[2023-02-27] MEDS: LACTATED RINGER'S 1,000 ML IV PRN ×3 (09:16→17:48)
[2023-02-27] MEDS ORDERED: BUTORPHANOL TARTRATE 1 MG/ML VIAL IV PRN (09:33)
--- NOTE | 2023-02-27 14:09 | Obstetrical Progress Note ---
Date of Service February 27, 2023 Assessment & Plan Admission and Anticipated Discharge Date Admission Date: February 27, 2023 Subjective Patient is reevaluated. She feels well, does not need pain managament for now Oxytocin is at 18 miu/min VE; 5/ 50%/-2, AROM'ed, bloody show FHR categ I Continue to monitor closely Results & Data Vital Signs (Past 12 Hours) Vital Signs Temp Pulse Resp BP 02/27/23 13:50 86 02/27/23 13:50 114/76 02/27/23 12:02 90 02/27/23 12:02 107/70 02/27/23 11:00 20 02/27/23 11:00 36.7 C 20 02/27/23 11:00 78 02/27/23 11:00 116/77 02/27/23 09:57 100 H 02/27/23 09:57 117/74 02/27/23 09:20 85 02/27/23 09:20 116/81 02/27/23 07:23 37.1 C 98 H 20 131/78
[2023-02-27] MEDS ORDERED: SODIUM CHLORIDE 0.9% PF INJ 10 ML VIAL ONE (14:28)
[2023-02-27] MEDS ORDERED: ePHEDrine sulfate 50 MG/ML AMP ONE (14:28)
[2023-02-27] MEDS ORDERED: BUPIVACAINE 0.25% PF 30 ML VIAL ONE (14:28)
[2023-02-27] MEDS ORDERED: LIDOCAINE 2%/EPINEPHRINE 1:200,000 20 ML PF ONE (14:28)
[2023-02-27] MEDS ORDERED: fentaNYL citrate PF 100 MCG/2 ML VIAL ONE (14:28)
[2023-02-27] MEDS ORDERED: fentaNYL 2MCG/ML ROPIVACAINE 1.25MG/ML 100 ML BAG EPI ONE (14:29)
--- NOTE | 2023-02-27 14:45 | Anesthesiology Consultation ---
Date of Service February 27, 2023 Assessment & Plan Chart Review Chart Review: Acceptable Risk for Labor Epidural Consults Requested none ASA ASA2 Proposed Anesthesia Anesthesia Type: Labor Epidural Risk / Benefits Reviewed With: PT / POA / Parent / Guardian, Accepts Plan and Informed Consent Obtained History Height/Weight Height: 5 ft 7 in Weight: 92.533 kg Allergies Allergy/AdvReac Type Severity Reaction Status Date / Time No Known Allergies Allergy Unknown Unverified 02/27/23 07:30 Medications Home Medications Medication Instructions Recorded Confirmed Last Taken prenat.vits,aaron,[id number] 1 tab PO DAILY 07/04/20 02/27/23 02/27/23 06:00 ferrous sulfate 325 mg (65 mg 325 mg PO BID 02/27/23 02/27/23 02/26/23 21:00 iron) tablet Active Medications Generic Name Dose Route Start Last Admin Trade Name Freq PRN Reason Stop Dose Admin Lactated Ringer's 1,000 mls @ 150 mls/hr 02/27/23 08:23 02/27/23 14:40 Lr IV 03/01/23 08:22 999 mls/hr .[id number] PRN Administration L&D Protocol Protocol Oxytocin 30 units in 500 mls @ 18 mls/hr 02/27/23 08:24 02/27/23 13:30 Pitocin IV 03/01/23 08:23 1.08 units/hr .Q24H PRN 18 mls/hr Labor Induction/Augmentation Titration Protocol 1.08 UNITS/HR Exercise / Class Metabolic Activity II 4-5 Yardwork/Stairs/Walk up hill Past Surgical History Surgical History History of surgery on arm History of tonsillectomy and adenoidectomy Past Anesthesia History No Hx of Anesthesia Complications and No Family Hx of Anesthesia Complications History of PONV No Hx of PONV and No Hx of Motion Sickness Social History Smoking Status: Never smoker Do You Dip or Chew Tobacco: No Hx Alcohol Use: No Hx Substance Use: No Physical Exam Vital Signs Last Vital Signs Temp 98.8 F 02/27/23 14:00 Pulse 86 02/27/23 13:50 Resp 20 02/27/23 14:00 BP 114/76 02/27/23 13:50 ENMT Mouth: no dentition abnormality Thyromental Distance: > or= 3.5 Finger Breadths Mallampati Class: II Neck normal visual inspection Respiratory normal respiratory effort Auscultation: lungs clear to auscultation bilaterally Cardiovascular Rate/Rhythm: regular rate and regular rhythm Testing Laboratory Results 02/27/23 08:32 02/27/23 08:32
[2023-02-27] MEDS ORDERED: NALOXONE HCL 0.4 MG/1 ML VIAL/CARP IV PRN (15:05)
[2023-02-27] MEDS ORDERED: fentaNYL citrate PF 100 MCG/2 ML VIAL EPI PRN (15:05)
[2023-02-27] MEDS ORDERED: NALBUPHINE HCL INJ 10 MG/ML AMP IV PRN (15:05)
[2023-02-27] MEDS ORDERED: ePHEDrine sulfate 50 MG/ML AMP IV PRN (15:05)
[2023-02-27] MEDS ORDERED: LIDOCAINE 2% MPF LOCAL 5 ML VIAL EPI PRN (15:05)
[2023-02-27] MEDS ORDERED: NALOXONE HCL 1 MG in SODIUM CHLORIDE 0.9% 1,000 ML IV PRN (15:05)
[2023-02-27] MEDS ORDERED: LIDOCAINE 2%/EPINEPHRINE 1:200,000 20 ML PF EPI STA (15:05)
[2023-02-27] MEDS ORDERED: ONDANSETRON INJ 2 MG/ML 2 ML VIAL IV PRN (15:05)
[2023-02-27] MEDS ORDERED: diphenhydrAMINE 50 MG/ML VIAL IV PRN (15:05)
[2023-02-27] MEDS ORDERED: ROPIVACAINE 0.5% PF 5 MG/ML 20 ML VIAL EPI PRN (15:05)
[2023-02-27] MEDS ORDERED: fentaNYL citrate PF 100 MCG/2 ML VIAL EPI STA (15:05)
[2023-02-27] MEDS ORDERED: SODIUM CHLORIDE 0.9% PF INJ 10 ML VIAL EPI PRN (15:05)
[2023-02-27] MEDS ORDERED: fentaNYL 2MCG/ML ROPIVACAINE 1.25MG/ML 100 ML BAG EPI PRN (15:05)
[2023-02-27] MEDS ORDERED: SODIUM CHLORIDE 0.9% PF INJ 10 ML VIAL EPI STA (15:05)
[2023-02-27] MEDS ORDERED: BUPIVACAINE 0.25% PF 30 ML VIAL EPI PRN (15:05)
[2023-02-27] MEDS ORDERED: BUPIVACAINE 0.25% PF 30 ML VIAL EPI STA (15:05)
--- NOTE | 2023-02-27 16:49 | Obstetrical Progress Note ---
Date of Service February 27, 2023 Assessment & Plan Admission and Anticipated Discharge Date Admission Date: February 27, 2023 Subjective Patient has received epidural about 2 hours ago. She started to have lower abdominal pain. heart rate has been having mild early decelerations breech contractions with spontaneous recovery. Vaginal exam, cervix is 5 to 6 cm dilated, 70% effaced, head is at -120 station with contraction, Anterior fontanelle is at 9 o'clock position, Plan to monitor closely and change positions for internal rotation of head. Results & Data Vital Signs (Past 12 Hours) Vital Signs Temp Pulse Resp BP Pulse Ox 02/27/23 16:45 100 02/27/23 16:45 94 H 02/27/23 16:40 96 02/27/23 16:40 79 02/27/23 16:35 99 02/27/23 16:35 76 02/27/23 16:36 82 02/27/23 16:36 121/70 02/27/23 16:00 20 02/27/23 16:00 37.2 C 20 02/27/23 16:30 96 02/27/23 16:30 90 02/27/23 16:25 96 02/27/23 16:25 89 02/27/23 16:20 97 02/27/23 16:20 92 H 02/27/23 16:20 76 02/27/23 16:20 110/68 02/27/23 16:15 98 02/27/23 16:15 95 H 02/27/23 16:10 98 02/27/23 16:10 85 02/27/23 16:05 99 02/27/23 16:05 92 H 02/27/23 16:05 111/70 02/27/23 16:00 99 02/27/23 16:00 80 02/27/23 15:55 100 02/27/23 15:55 89 02/27/23 15:50 98 02/27/23 15:50 91 H 02/27/23 15:49 99 H 02/27/23 15:49 139/96 02/27/23 15:45 98 02/27/23 15:45 116 H 02/27/23 15:44 80 02/27/23 15:44 131/78 02/27/23 15:30 20 02/27/23 15:30 20 02/27/23 15:40 100 02/27/23 15:41 83 L 02/27/23 15:40 84 02/27/23 15:41 89 02/27/23 15:39 85 02/27/23 15:39 113/73 02/27/23 15:35 94 02/27/23 15:35 74 02/27/23 15:33 83 02/27/23 15:33 113/74 02/27/23 15:31 82 L 02/27/23 15:31 72 02/27/23 15:30 99 02/27/23 15:30 90 02/27/23 15:29 74 02/27/23 15:29 122/73 02/27/23 15:25 97 02/27/23 15:25 71 02/27/23 15:24 75 02/27/23 15:24 122/71 02/27/23 15:20 100 02/27/23 15:20 97 H 02/27/23 15:17 85 02/27/23 15:17 121/82 02/27/23 15:15 97 02/27/23 15:15 103 H 02/27/23 15:15 83 02/27/23 15:15 122/83 02/27/23 15:13 95 H 02/27/23 15:13 128/79 02/27/23 15:12 83 L 02/27/23 15:12 101 H 02/27/23 15:03 20 02/27/23 15:03 20 02/27/23 15:10 100 02/27/23 15:10 95 H 02/27/23 15:11 85 02/27/23 15:11 116/73 02/27/23 15:09 100 H 02/27/23 15:09 125/84 02/27/23 15:07 88 02/27/23 15:07 121/76 02/27/23 15:05 88 02/27/23 15:05 114/74 02/27/23 15:03 98 02/27/23 15:03 87 02/27/23 15:03 90 02/27/23 15:03 114/76 02/27/23 14:58 91 02/27/23 14:58 78 02/27/23 14:53 98 02/27/23 14:53 93 H 02/27/23 14:50 93 02/27/23 14:50 93 H 02/27/23 14:48 95 02/27/23 14:48 95 H 02/27/23 14:00 20 02/27/23 14:00 37.1 C 20 02/27/23 13:50 86 02/27/23 13:50 114/76 02/27/23 12:02 90 02/27/23 12:02 107/70 02/27/23 11:00 20 02/27/23 11:00 36.7 C 20 02/27/23 11:00 78 02/27/23 11:00 116/77 02/27/23 09:57 100 H 02/27/23 09:57 117/74 02/27/23 09:20 85 02/27/23 09:20 116/81 02/27/23 07:23 37.1 C 98 H 20 131/78
[2023-02-27] MEDS ORDERED: NURSING L&D Epidural Breakthrough Pain Update ONE (16:54)
--- NOTE | 2023-02-27 18:04 | Obstetrical Progress Note ---
Date of Service February 27, 2023 Assessment & Plan Admission and Anticipated Discharge Date Admission Date: February 27, 2023 Subjective Patient still has some pain on lower pelvis FHR categ I VE; 10/ 100%/ +2 Will start pushing Results & Data Vital Signs (Past 12 Hours) Vital Signs Temp Pulse Resp BP Pulse Ox 02/27/23 18:00 98 02/27/23 18:00 91 H 02/27/23 17:55 96 02/27/23 17:55 97 H 02/27/23 17:50 97 02/27/23 17:50 101 H 02/27/23 17:51 97 H 02/27/23 17:51 116/74 02/27/23 17:45 95 02/27/23 17:45 89 02/27/23 17:40 95 02/27/23 17:40 84 02/27/23 17:35 96 02/27/23 17:35 113 H 02/27/23 17:35 112/65 02/27/23 17:30 20 02/27/23 17:30 20 02/27/23 17:30 97 02/27/23 17:30 87 02/27/23 17:25 99 02/27/23 17:25 99 H 02/27/23 17:21 96 H 02/27/23 17:21 116/75 02/27/23 17:20 94 02/27/23 17:20 95 H 02/27/23 17:15 96 02/27/23 17:15 102 H 02/27/23 17:10 96 02/27/23 17:10 98 H 02/27/23 17:00 20 02/27/23 17:00 20 02/27/23 17:06 100 H 02/27/23 17:06 115/74 02/27/23 17:05 96 02/27/23 17:05 113 H 02/27/23 17:00 96 02/27/23 17:00 100 H 02/27/23 16:30 20 02/27/23 16:30 20 02/27/23 16:55 97 02/27/23 16:55 98 H 02/27/23 16:52 99 H 02/27/23 16:52 111/75 02/27/23 16:50 97 02/27/23 16:50 81 02/27/23 16:45 100 02/27/23 16:45 94 H 02/27/23 16:40 96 02/27/23 16:40 79 02/27/23 16:35 99 02/27/23 16:35 76 02/27/23 16:36 82 02/27/23 16:36 121/70 02/27/23 16:00 20 02/27/23 16:00 37.2 C 20 02/27/23 16:30 96 02/27/23 16:30 90 02/27/23 16:25 96 02/27/23 16:25 89 02/27/23 16:20 97 02/27/23 16:20 92 H 02/27/23 16:20 76 02/27/23 16:20 110/68 02/27/23 16:15 98 02/27/23 16:15 95 H 02/27/23 16:10 98 02/27/23 16:10 85 02/27/23 16:05 99 02/27/23 16:05 92 H 02/27/23 16:05 111/70 02/27/23 16:00 99 02/27/23 16:00 80 02/27/23 15:55 100 02/27/23 15:55 89 02/27/23 15:50 98 02/27/23 15:50 91 H 02/27/23 15:49 99 H 02/27/23 15:49 139/96 02/27/23 15:45 98 02/27/23 15:45 116 H 02/27/23 15:44 80 02/27/23 15:44 131/78 02/27/23 15:30 20 02/27/23 15:30 20 02/27/23 15:40 100 02/27/23 15:41 83 L 02/27/23 15:40 84 02/27/23 15:41 89 02/27/23 15:39 85 02/27/23 15:39 113/73 02/27/23 15:35 94 02/27/23 15:35 74 02/27/23 15:33 83 02/27/23 15:33 113/74 02/27/23 15:31 82 L 02/27/23 15:31 72 02/27/23 15:30 99 02/27/23 15:30 90 02/27/23 15:29 74 02/27/23 15:29 122/73 02/27/23 15:25 97 02/27/23 15:25 71 02/27/23 15:24 75 02/27/23 15:24 122/71 02/27/23 15:20 100 02/27/23 15:20 97 H 02/27/23 15:17 85 02/27/23 15:17 121/82 02/27/23 15:15 97 02/27/23 15:15 103 H 02/27/23 15:15 83 02/27/23 15:15 122/83 02/27/23 15:13 95 H 02/27/23 15:13 128/79 02/27/23 15:12 83 L 02/27/23 15:12 101 H 02/27/23 15:03 20 02/27/23 15:03 20 02/27/23 15:10 100 02/27/23 15:10 95 H 02/27/23 15:11 85 02/27/23 15:11 116/73 02/27/23 15:09 100 H 02/27/23 15:09 125/84 02/27/23 15:07 88 02/27/23 15:07 121/76 02/27/23 15:05 88 02/27/23 15:05 114/74 02/27/23 15:03 98 02/27/23 15:03 87 02/27/23 15:03 90 02/27/23 15:03 114/76 02/27/23 14:58 91 02/27/23 14:58 78 02/27/23 14:53 98 02/27/23 14:53 93 H 02/27/23 14:50 93 02/27/23 14:50 93 H 02/27/23 14:48 95 02/27/23 14:48 95 H 02/27/23 14:00 20 02/27/23 14:00 37.1 C 20 02/27/23 13:50 86 02/27/23 13:50 114/76 02/27/23 12:02 90 02/27/23 12:02 107/70 02/27/23 11:00 20 02/27/23 11:00 36.7 C 20 02/27/23 11:00 78 02/27/23 11:00 116/77 02/27/23 09:57 100 H 02/27/23 09:57 117/74 02/27/23 09:20 85 02/27/23 09:20 116/81 02/27/23 07:23 37.1 C 98 H 20 131/78
[2023-02-27] MEDS ORDERED: BENZOCAINE 20% SPRY 85 APPLN/85 GM CAN EXT PRN (18:21)
[2023-02-27] MEDS ORDERED: DIPHTHERIA/TETANUS/PERTUSSIS Vaccine (Tdap, Age 7+yrs) 0.5mL SYR/VL IM ONE (18:21)
[2023-02-27] MEDS ORDERED: ACETAMINOPHEN 325 MG TAB PO PRN (18:21)
[2023-02-27] MEDS ORDERED: HYDROCORTISONE ACETATE 25 MG SUPP PR PRN (18:21)
[2023-02-27] MEDS ORDERED: bisacodyL 10 MG SUPP PR PRN (18:21)
[2023-02-27] MEDS ORDERED: MEASLES, MUMPS & RUBELLA VIRUS VACCINE (MMR) VIAL SQ ONE (18:21)
[2023-02-27] MEDS ORDERED: METHYLERGONOVINE MALEATE 0.2 MG/ML AMP ONE (18:54)
[2023-02-27] MEDS ORDERED: miSOPROStoL 200 MCG TAB ONE (18:55)
[2023-02-27] MEDS ORDERED: METHYLERGONOVINE MALEATE 0.2 MG/ML AMP IM ONE (19:09)
[2023-02-27] MEDS ORDERED: miSOPROStoL 200 MCG TAB PR ONE (19:09)
--- NOTE | 2023-02-27 19:15 | Delivery Summary ---
Vaginal Delivery Summary Date of Service February 27, 2023 Vaginal Delivery Summary Patient was found to be fully dilated and desires to push. She pushed for about 40 min and delivered the head in direct OP position and then shoulders with minimal traction. The baby was handed off to the mother. The cord was clampedx2 and cut at 1 minute. The vagina and perineum were checked and found to have 2nd degree perineal laceration. Rectal exam was done and noted good sphincter tone. The gloves were changes. The vaginal mucosa was repaired with 2/0 vicryl and skin on subcuticular fashion. The placenta was delivered spontaneously as intact and complete. The uterus was explored and found to be empty. EBL was 400 ml. IV Oxytocin was started she was given Rectal Cytotec and IM Methergine. The fundus was firm. The baby was a viable male infant, Apgars 8/9, the weight is pending The mother and the baby tolerated the procedure well. No complications happened and I was present during whole procedure.
--- NOTE | 2023-02-27 19:44 | Anesthesia Procedure Note ---
Date of Service February 27, 2023 Anesthesia Post Epidural Note Vital Signs Vital Signs: Temp Pulse Resp BP Pulse Ox 99.0 F 92 H 18 132/77 83 L 02/27/23 19:22 02/27/23 19:42 02/27/23 19:22 02/27/23 19:42 02/27/23 19:42 Pain Intensity Bilateral Abdomen: Pain Intensity: 8 Notes Mental Status: alert / awake / arousable and participated in evaluation Nausea / Vomiting: adequately controlled Pain: adequately controlled Airway Patency, RR, SpO2: stable & adequate BP & HR: stable & adequate Hydration State: stable & adequate Neuraxial Anesthesia: was administered and sensory block is resolving Anesthetic Complications: no major complications apparent and Pt Satisfied with anesthetic care Epidural: Removed without complications and With tip intact
[2023-02-27] MEDS ORDERED: METHYLERGONOVINE MALEATE 0.2 MG TAB PO STA (20:10)
[2023-02-27] MEDS: DOCUSATE SODIUM 100 MG CAP PO SCH (20:28)
[2023-02-28] MEDS: METHYLERGONOVINE MALEATE 0.2 MG TAB PO SCH ×2 (00:34→10:00)
[2023-02-28] MEDS: IBUPROFEN 600 MG TAB PO PRN ×2 (04:46→09:58)
[2023-02-28 07:10] LABS: Hematocrit (blood only) 36.1 % (37.0-47.0); Hemoglobin 11.8 g/dl (12.0-16.0); Mean Corpuscular Hgb Conc 32.7 g/dL (32.0-36.0); Mean Corpuscular Volume 79.7 fL (80.0-100.0); Mean Platelet Volume 11.5 fL (9.4-12.4); Platelet Count 222 K/uL (130-400); RDW Coefficient of Variation 16.3 % (11.5-14.5); RDW Standard Deviation 47.2 fL (36.4-46.3); Red Blood Count 4.53 M/uL (4.20-5.40); White Blood Count 17.88 K/ul (4.8-10.8)
[2023-02-28] MEDS: FERROUS SULFATE 325 MG TAB PO SCH (09:58)
[2023-02-28] MEDS: DOCUSATE SODIUM 100 MG CAP PO SCH ×2 (09:58→20:07)
[2023-02-28] MEDS: PRENATAL VITAMIN 1 TAB PO SCH (10:00)
--- NOTE | 2023-02-28 11:20 | Obstetrical Progress Note ---
Date of Service February 28, 2023 Subjective Ambulation: ambulating normally Voiding: mcgee catheter in place Passing Gas:: Yes Diet Tolerance:: regular diet Feeding Type:: breast feeding Current Pain Level(1-10): 0 doing well Physical Exam Constitutional WD/WN, vitals as above Gastrointestinal (Abdomen) Inspection/Auscultation: abdomen normal to inspection Musculoskeletal Extremities: extremities normal to inspection Neurologic patellar DTR's 2+ bilat, sensation intact Psychiatric A+Ox3, euthymic affect Genitourinary Mcgee removed. vaginal packing removed. Results & Data Vital Signs (Past 12 Hours) Vital Signs Temp Pulse Resp BP Pulse Ox O2 Del Method 02/28/23 04:25 37.6 C H 95 H 18 111/74 95 Room Air 02/28/23 00:35 37.8 C H Laboratory Results Laboratory Results - last 48 hr 02/27/23 02/27/23 02/28/23 08:32 08:32 06:39 WBC 9.29 17.88 H RBC 4.25 4.53 Hgb 11.2 L 11.8 L Hct 34.2 L 36.1 L MCV 80.5 79.7 L MCH 26.4 26.0 MCHC 32.7 32.7 RDW Std Deviation 47.8 H 47.2 H RDW Coeff of Ajay 16.3 H 16.3 H Plt Count 223 222 MPV 11.4 11.5 Sodium 138 Potassium 3.6 Chloride 107 Carbon Dioxide 24 Anion Gap 7 BUN 8 Creatinine 0.50 L Est Cr Clr Drug Dosing 193.9 Est GFR ( Amer) > 150.0 Est GFR (Non-Af Amer) 130.8 BUN/Creatinine Ratio 16.0 Glucose 77 Calcium 9.3 Total Bilirubin 0.4 AST 15 ALT 9 Alkaline Phosphatase 232 H Total Protein 6.3 Albumin 3.5 Globulin 2.8 Albumin/Globulin Ratio 1.3
[2023-02-28] MEDS ORDERED: bisacodyL 5 MG TABEC PO SCH (20:00)
[2023-03-01 06:51] LABS: Hematocrit (blood only) 33.1 % (37.0-47.0); Hemoglobin 10.7 g/dl (12.0-16.0)
[2023-03-01] MEDS: FERROUS SULFATE 325 MG TAB PO SCH (09:19)
[2023-03-01] MEDS: PRENATAL VITAMIN 1 TAB PO SCH (09:19)
[2023-03-01] MEDS: DOCUSATE SODIUM 100 MG CAP PO SCH (09:19)
--- NOTE | 2023-03-01 09:55 | Obstetrical Progress Note ---
Date of Service March 01, 2023 Assessment & Plan (1) Normal course: PPD #2 pt doing well wishes to be disch home Results & Data Vital Signs (Past 12 Hours) Vital Signs Temp Pulse Resp BP Pulse Ox O2 Del Method 02/28/23 23:02 36.8 C 99 H 18 107/77 97 Room Air
== END 2023-03-01 13:25 | disposition home or self-care (01) | DRG 807 ==
LOC: 4S1 07:10 → 4E2 21:59

== ENCOUNTER 2023-03-05 09:30 | Observation (INO) ==
[2023-03-05 11:20] LABS: Basophils # (auto) 0.05 K/uL (0.00-0.20); Basophils % (auto) 0.3 %; Eosinophils # (auto) 0.08 K/uL (0.00-0.50); Eosinophils % (auto) 0.4 %; Hematocrit (blood only) 39.9 % (37.0-47.0); Hemoglobin 13.2 g/dl (12.0-16.0); Lymphocytes # (auto) 1.31 K/uL (1.20-3.40); Lymphocytes % (auto) 6.8 %; Mean Corpuscular Hemoglobin 26.2 pg (25.0-34.0); Mean Corpuscular Hgb Conc 33.1 g/dL (32.0-36.0); Mean Corpuscular Volume 79.3 fL (80.0-100.0); Mean Platelet Volume 10.8 fL (9.4-12.4); Monocytes # (auto) 0.62 K/uL (0.11-0.59); Monocytes % (auto) 3.2 %; Neutrophils % (auto) 88.3 %; Platelet Count 366 K/uL (130-400); RDW Coefficient of Variation 16.5 % (11.5-14.5); RDW Standard Deviation 47.6 fL (36.4-46.3); Red Blood Count 5.03 M/uL (4.20-5.40); White Blood Count 19.26 K/ul (4.8-10.8)
[2023-03-05 11:36] LABS: Albumin Globulin Ratio 1.1 (0.9-2); Albumin Level 4.3 gm/dl (3.4-5.0); BUN Creatinine Ratio 18.9 (10-20); Bilirubin,Total 0.6 mg/dl (0.2-1.0); Calcium 9.3 mg/dl (8.6-10.3); Creatinine Clr Calc Pharmacy 124.8 ml/min; Est GFR (African American) 126.9 ml/min; Est GFR (Non-African American) 109.5 ml/min; Globulin 3.9 gm/dl (2.5-4.0); Potassium 3.4 mmol/L (3.5-5.1); Total Protein 8.2 gm/dl (6.0-8.3)
[2023-03-05 13:13] LABS: Appearance Urine Cloudy (Clear); Bacteria Urine Automated Negative (Negative); Bilirubin Urine Negative (Negative); Blood Urine 3+ (Negative); Color Urine Yellow; Glucose Urine UA Negative (Negative); Ketones Urine 4+ (Negative); Leukocyte Esterase Urine 1+ (Negative); Nitrite Urine Negative (Negative); Protein Urine 2+ (Negative); RBC Urine Automated 0-4 /hpf (0-4); Specific Gravity Urine 1.028 (1.000-1.030); Urobilinogen Urine Negative (Negative); WBC Urine Automated >30 /hpf (0-5)
--- NOTE | 2023-03-05 13:18 | Ultrasound Report ---
US pelvic complete HISTORY: 27 years-old Female fever, poss retained prod . fever with generalized pelvic pa in COMPARISON: None TECHNIQUE: Sonographic images of the deep pelvic structures were obtained transabdominally assessing grayscale appearance, color and spectral flow FINDINGS: Anteflexed postgravid appearance of the uterus measures 16.0 x 6.9 x 10.8 cm. Probable nabothian cyst s of the cervix measuring up to 1 cm. Endometrium measures 8 mm in thickness. No retained products of conception identified. The right ovary measures 3.6 x 2.0 x 2.9 cm. The left ovary measures 5.1 x 2.8 x 2.5 cm. Arterial inf low and venous outflow is present bilaterally. No adnexal mass lesions or fluid collections. IMPRESSION: 1. Postgravid appearance of the uterus. No endometrial thickening or retained products of conception identified. 2. Unremarkable sonographic appearance of the ovaries. ACT 112: Negative or not required by law. The above report was generated using voice recognition software. It may contain grammatical, syntax o r spelling errors. Electronically signed by: Zacarias Jang M.D. 03/05/2023 1:17 PM
[2023-03-05] MEDS ORDERED: VANCOMYCIN CONSULT ACTIVE PRN (14:41)
[2023-03-05] MEDS ORDERED: cefTRIAXone SODIUM 2,000 MG in DEXTROSE 5 % MINI-B 50 ML IV STA (14:41)
[2023-03-05] MEDS ORDERED: VANCOMYCIN HCL 1,750 MG in SODIUM CHLORIDE 0.9% 500 ML IV ONE (14:41)
--- NOTE | 2023-03-05 15:51 | Emergency Department Note ---
Impression & Plan endometritis, fever ED Provider Note NAME: JERMAINE TRAVIS AGE: 27 SEX: F : 1995 ARRIVES VIA: Walk-In INFORMANT: Patient, ED PROVIDER(S): Miguel Ángel Suarez MD CHIEF COMPLAINT: fever HPI: This is a 27-year-old female presenting for fever. Patient is 6 days at this time. She states that she had a slight fever while and was given ibuprofen for this. She was discharged home and has a continued fevers at home. She has had fevers up to 100-101. She notes that she has had continued pelvic/suprapubic abdominal pain. She notes that she has had change in her vaginal discharge, now with slightly worse odor and it is somewhat clear. She notes back pain where she had her epidural. She notes that today she had loss of bowel and bladder control. She notes that she was unable to control her bowels as well as bladder. This had not happened previous days. She notes that the pain in her back is episodic and when she has pain it is severe, crampy and associated with loss of bowel/bladder control. ROS: See above HPI for pertinent positives & negatives. A total of 10 systems reviewed and were otherwise negative. PAST MEDICAL HISTORY: See Below PAST SURGICAL HISTORY: See Below FAMILY HISTORY: See Below SOCIAL HISTORY: See Below HOME MEDICATIONS: See Below ALLERGIES: See Below VITALS: See Below PHYSICAL EXAMINATION: General: resting comfortably in no acute distress Head: Normocephalic and atraumatic Eyes: Normal inspection, extraocular muscles intact, no conjunctival pallor Ear, nose, throat: Normal external exam Neck: Normal range of motion Respiratory: Patient is in no respiratory distress, lungs clear to auscultation bilaterally Cardiovascular: RRR without murmur appreciated GI: soft, nontender, no guarding or rebound : Serosanguineous discharge vaginally, no external erythema Extremities: pulses intact with good cap refills, no LE pitting edema or calf tenderness Neuro: The patient awake and alert, appropriately conversive,no focal decifits Skin: Warm, dry, and intact MEDICAL DECISION MAKING: This is a 27-year-old female presents for fever. Patient is 6 days . Patient ultrasound done at triage which does not show any retained products of conception. Otherwise patient may have endometritis versus epidural abscess with her current symptoms. She has persistent fever, pelvic pain and continued discharge. She did have a grade 2 laceration requiring sutures during delivery. Otherwise she has worsening back pain which is now associated with loss of bowel/bladder control. Emergent MRI ordered for concerns of epidural abscess. MRI is negative at this time. With patient's change in vaginal discharge, worsening odor, worsening fever, concern for endometritis. Triage Nursing notes reviewed. Prior medical records reviewed Vital Signs: reviewed and remarkable for no significant abnormalities Differential diagnosis: ER treatment provided: See below Diagnostics interpreted by me: ECG: ECG reviewed by me with sinus tachycardia ventricular rate of 118, normal axis, normal NV, normal QRS, normal QTc, no ST segment elevations consistent with STEMI criteria Cardiac Monitoring: An order was placed for continuous cardiac monitoring. The monitor shows a rate of 122 with sinus rhythm Laboratory studies: As stated above and show below. Imaging studies: See below. 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[employer] Furniture Required: No Beliefs That Will Affect Care: None marital status: Current Living Situation: Family Feels Safe at Home: Yes Safety Concerns: Feels Safe At This Time Assistive Devices: None Allergies Allergies Allergy/AdvReac Type Severity Reaction Status Date / Time No Known Allergies Allergy Unknown Unverified 02/27/23 07:30 Home Meds Home Medications Medication Instructions Recorded Confirmed prenat.vits,aaron,[id number] 1 tab PO DAILY 07/04/20 03/05/23 ferrous sulfate 325 mg (65 mg 325 mg PO BID 02/27/23 03/05/23 iron) tablet Previous Rx's Medication Instructions Recorded ibuprofen 600 mg tablet 600 mg PO Q6H PRN fever or pain 02/28/23 #30 tabs Results & Data (ED) Vital Signs Vital Signs - 24 hr 03/05/23 09:58 03/05/23 16:29 Temperature 38.0 C H 37.8 C H Temperature Source Oral Oral Pulse Rate 135 H Pulse Rate [Radial] 121 H Respiratory Rate 20 20 Respiratory Effort / Characteristics Non-Labored Non-Labored Respiratory Depth Normal Normal Respiratory Pattern Regular Blood Pressure 115/65 Blood Pressure [Right Arm] 114/64 Blood Pressure Mean 81 Blood Pressure Mean [Right Arm] 80 Pulse Oximetry 98 96 Oxygen Delivery Method Room Air Room Air Sepsis Recent Fever Within 48 Hours Yes Sepsis New/Unexplained Change in Mental Status N/A Sepsis Action Taken by Nursing No Action Required Laboratory Data 03/05/23 10:48 03/05/23 10:48 Lab Results 03/05/23 03/05/23 03/05/23 Range/Units 10:48 10:48 12:54 WBC 19.26 H (4.8-10.8) K/ul RBC 5.03 (4.20-5.40) M/uL Hgb 13.2 (12.0-16.0) g/dl Hct 39.9 (37.0-47.0) % MCV 79.3 L (80.0-100.0) fL MCH 26.2 (25.0-34.0) pg MCHC 33.1 (32.0-36.0) g/dL RDW Std Deviation 47.6 H (36.4-46.3) fL RDW Coeff of Ajay 16.5 H (11.5-14.5) % Plt Count 366 (130-400) K/uL MPV 10.8 (9.4-12.4) fL Immature Gran % (Auto) 1.0 % Neut % (Auto) 88.3 % Lymph % (Auto) 6.8 % [place] % (Auto) 3.2 % Eos % (Auto) 0.4 % Baso % (Auto) 0.3 % Neut # (Auto) 17.00 H (1.40-6.50) K/uL Lymph # (Auto) 1.31 (1.20-3.40) K/uL [place] # (Auto) 0.62 H (0.11-0.59) K/uL Eos # (Auto) 0.08 (0.00-0.50) K/uL Baso # (Auto) 0.05 (0.00-0.20) K/uL Immature Gran # (Auto) 0.20 (0.01-0.20) K/uL Sodium 132 L (136-145) mmol/L Potassium 3.4 L (3.5-5.1) mmol/L Chloride 97 L (98-107) mmol/L Carbon Dioxide 21 (21-32) mmol/L Anion Gap 14 H (3-11) BUN 14 (6-23) mg/dl Creatinine 0.74 (0.6-1.2) mg/dl Est Cr Clr Drug Dosing 124.8 ml/min Est GFR ( Amer) 126.9 ml/min Est GFR (Non-Af Amer) 109.5 ml/min BUN/Creatinine Ratio 18.9 (10-20) Glucose 85 (70-99(Fasting)) mg/dl Calcium 9.3 (8.6-10.3) mg/dl Total Bilirubin 0.6 (0.2-1.0) mg/dl AST 20 (13-39) U/L ALT 13 (7-52) U/L Alkaline Phosphatase 186 H (34-104) U/L Total Protein 8.2 (6.0-8.3) gm/dl Albumin 4.3 (3.4-5.0) gm/dl Globulin 3.9 (2.5-4.0) gm/dl Albumin/Globulin Ratio 1.1 (0.9-2) Lipase 3 L (11-82) U/L Urine Color Yellow Urine Appearance Cloudy A (Clear) Urine pH 6.0 (4.5-7.5) Ur Specific [place] 1.028 (1.000-1.030) Urine Protein 2+ H (Negative) Urine Glucose (UA) Negative (Negative) Urine Ketones 4+ H (Negative) Urine Blood 3+ H (Negative) Urine Nitrite Negative (Negative) Urine Bilirubin Negative (Negative) Urine Urobilinogen Negative (Negative) Ur Leukocyte Esterase 1+ H (Negative) Urine WBC (Auto) >30 H (0-5) /hpf Urine RBC (Auto) 0-4 (0-4) /hpf U Hyaline Cast (Auto) 5-10 H (0-5) /lpf U Epithel Cells (Auto) 10-20 H (0-5) /lpf Urine Bacteria (Auto) Negative (Negative) Granular Casts 1-5 H (0) /lpf Adenovirus (PCR) (NotDetected) B. pertussis DNA (PCR) (NotDetected) B.parapertussis DNA PCR (NotDetected) C. pneumoniae DNA (PCR) (NotDetected) Coronavirus OC43 (PCR) (NotDetected) Coronavirus HKU1 (PCR) (NotDetected) Coronavirus 229E (PCR) (NotDetected) SARS-CoV-2 (PCR) (NotDetected) Coronavirus NL63 (PCR) (NotDetected) Human Metapneumovir PCR (NotDetected) Influenza Type A (PCR) (NotDetected) Influenza Type B (PCR) (NotDetected) M. pneumoniae (PCR) (NotDetected) Parainfluenza 1 (PCR) (NotDetected) Parainfluenza 2 (PCR) (NotDetected) Parainfluenza 3 (PCR) (NotDetected) Parainfluenza 4 (PCR) (NotDetected) RSV (PCR) (NotDetected) Entero/Rhino (PCR) (NotDetected) 03/05/23 Range/Units 16:50 WBC (4.8-10.8) K/ul RBC (4.20-5.40) M/uL Hgb (12.0-16.0) g/dl Hct (37.0-47.0) % MCV (80.0-100.0) fL MCH (25.0-34.0) pg MCHC (32.0-36.0) g/dL RDW Std Deviation (36.4-46.3) fL RDW Coeff of Ajay (11.5-14.5) % Plt Count (130-400) K/uL MPV (9.4-12.4) fL Immature Gran % (Auto) % Neut % (Auto) % Lymph % (Auto) % [place] % (Auto) % Eos % (Auto) % Baso % (Auto) % Neut # (Auto) (1.40-6.50) K/uL Lymph # (Auto) (1.20-3.40) K/uL [place] # (Auto) (0.11-0.59) K/uL Eos # (Auto) (0.00-0.50) K/uL Baso # (Auto) (0.00-0.20) K/uL Immature Gran # (Auto) (0.01-0.20) K/uL Sodium (136-145) mmol/L Potassium (3.5-5.1) mmol/L Chloride (98-107) mmol/L Carbon Dioxide (21-32) mmol/L Anion Gap (3-11) BUN (6-23) mg/dl Creatinine (0.6-1.2) mg/dl Est Cr Clr Drug Dosing ml/min Est GFR ( Amer) ml/min Est GFR (Non-Af Amer) ml/min BUN/Creatinine Ratio (10-20) Glucose (70-99(Fasting)) mg/dl Calcium (8.6-10.3) mg/dl Total Bilirubin (0.2-1.0) mg/dl AST (13-39) U/L ALT (7-52) U/L Alkaline Phosphatase (34-104) U/L Total Protein (6.0-8.3) gm/dl Albumin (3.4-5.0) gm/dl Globulin (2.5-4.0) gm/dl Albumin/Globulin Ratio (0.9-2) Lipase (11-82) U/L Urine Color Urine Appearance (Clear) Urine pH (4.5-7.5) Ur Specific [place] (1.000-1.030) Urine Protein (Negative) Urine Glucose (UA) (Negative) Urine Ketones (Negative) Urine Blood (Negative) Urine Nitrite (Negative) Urine Bilirubin (Negative) Urine Urobilinogen (Negative) Ur Leukocyte Esterase (Negative) Urine WBC (Auto) (0-5) /hpf Urine RBC (Auto) (0-4) /hpf U Hyaline Cast (Auto) (0-5) /lpf U Epithel Cells (Auto) (0-5) /lpf Urine Bacteria (Auto) (Negative) Granular Casts (0) /lpf Adenovirus (PCR) Not Detected (NotDetected) B. pertussis DNA (PCR) Not Detected (NotDetected) B.parapertussis DNA PCR Not Detected (NotDetected) C. pneumoniae DNA (PCR) Not Detected (NotDetected) Coronavirus OC43 (PCR) Not Detected (NotDetected) Coronavirus HKU1 (PCR) Not Detected (NotDetected) Coronavirus 229E (PCR) Not Detected (NotDetected) SARS-CoV-2 (PCR) Not Detected (NotDetected) Coronavirus NL63 (PCR) Not Detected (NotDetected) Human Metapneumovir PCR Not Detected (NotDetected) Influenza Type A (PCR) Not Detected (NotDetected) Influenza Type B (PCR) Not Detected (NotDetected) M. pneumoniae (PCR) Not Detected (NotDetected) Parainfluenza 1 (PCR) Not Detected (NotDetected) Parainfluenza 2 (PCR) Not Detected (NotDetected) Parainfluenza 3 (PCR) Not Detected (NotDetected) Parainfluenza 4 (PCR) Not Detected (NotDetected) RSV (PCR) Not Detected (NotDetected) Entero/Rhino (PCR) Not Detected (NotDetected) Administered Medications Potassium Chloride/Dextrose/Sod Cl (D5w And 1/2nss + 20meq Kcl) 20 meq in 1,000 mls @ 125 mls/hr IV .Q8H KEEGAN Stop: 04/04/23 17:14 Last Admin: 03/05/23 18:50 Dose: 125 mls/hr Documented By: JEIMY Clindamycin Phosphate (Cleocin/D5w) 900 mg in 50 mls @ 100 mls/hr IV Q8H KEEGAN Stop: 03/15/23 17:59 Last Infusion: 03/05/23 22:15 Dose: 0 mls/hr Documented By: Admin: 03/05/23 21:43 Dose: 100 mls/hr Documented By: CT Gentamicin Sulfate 420 mg/ (Dextrose) 110.5 mls @ 100 mls/hr IV Q24H KEEGAN Stop: 03/15/23 17:59 Last Admin: 03/05/23 22:18 Dose: 100 mls/hr Documented By: CT Discontinued Medications Acetaminophen (Acetaminophen 500 Mg Tab) 1,000 mg PO NOW STA Stop: 03/05/23 19:19 Last Admin: 03/05/23 19:52 Dose: 1,000 mg Documented By: MIKE Diphenhydramine HCl (Diphenhydramine 50 Mg/Ml Vial) 50 mg IV NOW STA Stop: 03/05/23 18:40 Last Admin: 03/05/23 18:49 Dose: 50 mg Documented By: JEIMY Gadobutrol (Gadobutrol 65ml Vial) 8 ml IV ONCE ONE Stop: 03/05/23 16:10 Last Admin: 03/05/23 16:09 Dose: 8 ml Documented By: GAIL Vancomycin HCl 1,750 mg/ (Sodium Chloride) 535 mls @ 200 mls/hr IV NOW ONE Stop: 03/05/23 17:21 Last Admin: 03/05/23 16:28 Dose: 200 mls/hr Documented By: JEIMY Ceftriaxone Sodium 2,000 mg/ (Dextrose) 50 mls @ 100 mls/hr IV NOW STA; Protocol Stop: 03/05/23 15:10 Last Infusion: 03/05/23 15:55 Dose: 0 mls/hr Documented By: Admin: 03/05/23 15:19 Dose: 100 mls/hr Documented By: JEIMY Sodium Chloride (Nss) 1,000 mls @ 999 mls/hr IV .Q1H1M ONE Stop: 03/05/23 17:54 Last Infusion: 03/05/23 18:45 Dose: 0 mls/hr Documented By: Admin: 03/05/23 17:17 Dose: 999 mls/hr Documented By: PRINCEN Sodium Chloride (Nss) 1,000 mls @ 999 mls/hr IV .Q1H1M ONE Stop: 03/05/23 20:17 Last Admin: 03/05/23 19:52 Dose: 999 mls/hr Documented By: MIKE Imaging Data Radiologist's Impression: Pelvis Ultrasound 03/05/23 11:44 US pelvic complete HISTORY: 27 years-old Female fever, poss retained prod . fever with generalized pelvic pain COMPARISON: None TECHNIQUE: Sonographic images of the deep pelvic structures were obtained transa bdominally assessing grayscale appearance, color and spectral flow FINDINGS: Anteflexed postgravid appearance of the uterus measures 16.0 x 6.9 x 10.8 cm. Probable nabothian cysts of the cervix measuring up to 1 cm. Endometrium measures 8 mm in thickness. No retained products of conception identified. The right ovary measures 3.6 x 2.0 x 2.9 cm. The left ovary measures 5.1 x 2.8 x 2.5 cm. Arterial inflow and venous outflow is present bilaterally. No adnexal mass lesions or fluid collections. IMPRESSION: 1. Postgravid appearance of the uterus. No endometrial thickening or retained products of conception identified. 2. Unremarkable sonographic appearance of the ovaries. ACT 112: Negative or not required by law. The above report was generated using voice recognition software. It may contain grammatical, syntax or spelling errors. Electronically signed by: Zacarias Jang M.D. 03/05/2023 1:17 PM Lumbar Spine MRI 03/05/23 14:58 MRI OF THE LUMBAR SPINE WITH AND WITHOUT CONTRAST CLINICAL HISTORY: epidural, fever, loss of bladder control, back pain COMPARISON STUDY: No previous studies for comparison. TECHNIQUE: Utilizing a 1.5 Dinora magnet and dedicated coil, multiplanar, multiecho imaging of the lumbar spine was performed before and after uneventful IV administration of 8 mL of Gadavist. FINDINGS: The uterus is enlarged, expected given recent delivery. For purposes of numbering on this exam, the L5-S1 disc space is assigned to axial image 27 of 30. Alignment of the lumbar spine is anatomic. Vertebral body heights are maintained. There is no fracture. No suspicious marrow replacement is present. The conus terminates at the upper L1 level. Paravertebral soft tissues are unremarkable. There is no intracanalicular mass or fluid collection. L1-2: The central canal and neural foramen are patent. L2-3: The central canal and neural foramen are patent. L3-4: The central canal and neural foramen are patent. L4-5: There is mild disc space narrowing. There is a central disc protrusion. There is mild narrowing of the central canal. Patent AP diameter canal is 7 mm. There is mild narrowing of the lateral recesses. The neural foramen are patent. L5-S1: There is mild disc bulge with superimposed small central disc protrusion. The central canal is patent. There is mild narrowing of the lateral recesses. The neural foramen are patent. IMPRESSION: 1. No acute process within the lumbar spine by MRI. 2. Mild degenerative disc disease at L4-L5 and L5-S1, as described above. Mild central canal stenosis at L4-L5. Mild bilateral lateral recess narrowing at these 2 levels. 3. No significant neural foraminal stenosis. ACT 112: Negative or not required by law. Electronically signed by: Everett Alvarado M.D. 03/05/2023 4:30 PM Discharge Plan Visit Data Chief Complaint: Pelvic Pain Stated Complaint: DOC REF,PELVIC PAIN, ED Provider: Miguel Ángel Suarez Discharge Problem: endometritis, fever Patient Disposition: Admitted As Inpatient Discharge Instructions Interventions: ED Discharge Assessment Last Done: 03/05/23 20:08
[2023-03-05] MEDS ORDERED: GADOBUTROL 65ML VIAL IV ONE (16:09)
--- NOTE | 2023-03-05 16:32 | Magnetic Resonance Report ---
MRI OF THE LUMBAR SPINE WITH AND WITHOUT CONTRAST CLINICAL HISTORY: epidural, fever, loss of bladder control, back pain COMPARISON STUDY: No previous studies for comparison. TECHNIQUE: Utilizing a 1.5 Dinora magnet and dedicated coil, multiplanar, multiecho imaging of the jp mbar spine was performed before and after uneventful IV administration of 8 mL of Gadavist. FINDINGS: The uterus is enlarged, expected given recent delivery. For purposes of numbering on this exam, the L 5-S1 disc space is assigned to axial image 27 of 30. Alignment of the lumbar spine is anatomic. Verte bral body heights are maintained. There is no fracture. No suspicious marrow replacement is present. The conus terminates at the upper L1 level. Paravertebral soft tissues are unremarkable. There is no intracanalicular mass or fluid collection. L1-2: The central canal and neural foramen are patent. L2-3: The central canal and neural foramen are patent. L3-4: The central canal and neural foramen are patent. L4-5: There is mild disc space narrowing. There is a central disc protrusion. There is mild narrowing of the central canal. Patent AP diameter canal is 7 mm. There is mild narrowing of the lateral reces ses. The neural foramen are patent. L5-S1: There is mild disc bulge with superimposed small central disc protrusion. The central canal is patent. There is mild narrowing of the lateral recesses. The neural foramen are patent. IMPRESSION: 1. No acute process within the lumbar spine by MRI. 2. Mild degenerative disc disease at L4-L5 and L5-S1, as described above. Mild central canal stenosis at L4-L5. Mild bilateral lateral recess narrowing at these 2 levels. 3. No significant neural foraminal stenosis. ACT 112: Negative or not required by law. Electronically signed by: Everett Alvarado M.D. 03/05/2023 4:30 PM
[2023-03-05] MEDS ORDERED: SODIUM CHLORIDE 0.9% 1,000 ML IV ONE ×2 (16:54→19:17)
[2023-03-05] MEDS ORDERED: ALUMINUM/MAGNESIUM/SIMETH (MAALOX MAX) 30 ML UDC PO PRN (17:08)
[2023-03-05] MEDS ORDERED: MAGNESIUM HYDROXIDE SUSP 30 ML UDC PO PRN (17:08)
[2023-03-05] MEDS ORDERED: ONDANSETRON INJ 2 MG/ML 2 ML VIAL IV PRN (17:08)
[2023-03-05] MEDS ORDERED: GENTAMICIN CONSULT ACTIVE PRN (17:13)
[2023-03-05] MEDS ORDERED: GENTAMICIN SULFATE 120 MG in DEXTROSE 5% 100 ML IV STA (17:18)
[2023-03-05] MEDS ORDERED: IBUPROFEN 600 MG TAB PO PRN (17:24)
[2023-03-05 18:03] LABS: Adenovirus PCR Not Detected (NotDetected); Bordetella parapertussis PCR Not Detected (NotDetected); Bordetella pertussis PCR Not Detected (NotDetected); Chlamydia pneumoniae PCR Not Detected (NotDetected); Coronavirus 229E PCR Not Detected (NotDetected); Coronavirus CoV-2 (COVID19)PCR Not Detected (NotDetected); Coronavirus HKU1 PCR Not Detected (NotDetected); Coronavirus NL63 PCR Not Detected (NotDetected); Coronavirus OC43PCR Not Detected (NotDetected); Human Metapneumovirus PCR Not Detected (NotDetected); Influenza A PCR Not Detected (NotDetected); Influenza B PCR Not Detected (NotDetected); Mycoplasma pneumoniae PCR Not Detected (NotDetected); Parainfluenza Virus 1 PCR Not Detected (NotDetected); Parainfluenza Virus 2 PCR Not Detected (NotDetected); Parainfluenza Virus 3 PCR Not Detected (NotDetected); Parainfluenza Virus 4 PCR Not Detected (NotDetected); Respiratory Syncytial VirusPCR Not Detected (NotDetected); Rhinovirus/Enterovirus PCR Not Detected (NotDetected)
[2023-03-05] MEDS ORDERED: diphenhydrAMINE 50 MG/ML VIAL IV STA (18:39)
[2023-03-05] MEDS: D5W AND 1/2NSS + 20MEQ KCL 20 MEQ/1,000 ML BAG IV SCH (18:50)
[2023-03-05] MEDS ORDERED: ACETAMINOPHEN 500 MG TAB PO STA (19:18)
--- NOTE | 2023-03-05 19:41 | History & Physical Report ---
Date of Service March 05, 2023 Assessment & Plan (1) fever: (2) endometritis: Plan: 27-year-old -0-0-2 status post vaginal delivery on February 27, discharged on March 01, Started to have fever for the last 3 days with decreased appetite and lower abdominal pain and smell of lochia, Vital signs, physical exam and labs suggesting endometritis, being given IV vancomycin now by ER team, Plan to admit, monitor, IV antibiotics for 48 hours or at least afebrile for 24 hours, IV fluids, repeat labs, All questions were answered. History of Present Illness Chief Complaint: Patient is a 27-year-old -0-0-2 who is status post spontaneous vaginal delivery on February 27 by myself. She was admitted in the morning for induction of labor for postdates. She received Garrido balloon insertion and then oxytocin, AROM followed by uncomplicated quick delivery without prolonged rupture of membranes or prolonged labor. She was doing well here with one-time low-grade temperature for which she was given p.o. Tylenol and was not given any antibiotics. She was discharged on March 01. She was fine for about 2 days and then started to have fevers and increased abdominal pain, decreased appetite on . She has not called anyone until this morning when she called her primary care and was seen by them and referred to ER for admission. She was found to have elevated white count, fever, tachycardia and normal ultrasound and normal MRI of lower back due to back pain from epidural site. She was started on IV vancomycin. I was called to admit her for endometritis. She seen and examined by myself in the ER. She also noted different smell in her lochia which has been between pink to red and mucus. She denies pain during urination, she denies vomiting but she has been nauseous. She denies upper respiratory illness symptoms and her swab here came back negative for all viruses. She has been breast-feeding without problems. She denies breast pain or redness. Her baby is doing very well with no signs of fever nor infection. Her baby is with her and older 2-1/2-year-old brother. She has been given IV vancomycin ordered by ER physician. She started to have "red man" syndrome with erythema on face and chest, denies chest pain shortness of breath, swelling in mouth lips nor THROAT I ordered IV clindamycin and gentamicin started tonight. Primary Care Provider: LASHON Patiño Allergies Allergy/AdvReac Type Severity Reaction Status Date / Time No Known Allergies Allergy Unknown Unverified 02/27/23 07:30 Home Medications Medication Instructions Recorded Confirmed Type prenat.vits,aaron,[id number] 1 tab PO DAILY 07/04/20 03/05/23 History ferrous sulfate 325 mg (65 mg 325 mg PO BID 02/27/23 03/05/23 History iron) tablet ibuprofen 600 mg tablet 600 mg PO Q6H PRN fever or pain 02/28/23 03/05/23 Rx #30 tabs Patient History Surgical History History of surgery on arm History of tonsillectomy and adenoidectomy Social History Smoking Status: Never smoker Second Hand Exposure: No; Do You Dip or Chew Tobacco: No; Hx Alcohol Use: No Hx Substance Use: No Preferred Language: Wolof Communication Ability: Effective Instrument Operator Required: No Beliefs That Will Affect Care: None marital status: Current Living Situation: Spouse Feels Safe at Home: Yes Assistive Devices: None Review of Systems as per Subjective / HPI Physical Exam Constitutional: well nourished Gastrointestinal (Abdomen): normal bowel sounds, soft, nontender, no hepatosplenomegaly (Except suprapubic tenderness, no rebound) Skin: normal turgor and + rash (Diffuse red on face and chest, "red man" syndrome due to IV vancomycin) Warm to touch suggesting ongoing fever Genitourinary: normal external appearance Speculum exam is deferred, her lochia appears to be pink with odor Results & Data Vital Signs (Past 12 Hours) Vital Signs Temp Pulse Pulse Resp BP BP Pulse Ox 03/05/23 18:00 123 H 18 99/58 L 97 03/05/23 16:29 37.8 C H 121 H 20 114/64 96 03/05/23 09:58 38.0 C H 135 H 20 115/65 98 O2 Del Method 03/05/23 18:00 Room Air 03/05/23 16:29 Room Air 03/05/23 09:58 Room Air Laboratory Results 03/05/23 03/05/23 03/05/23 Range/Units 16:50 12:54 10:48 WBC (4.8-10.8) K/ul RBC (4.20-5.40) M/uL Hgb (12.0-16.0) g/dl Hct (37.0-47.0) % MCV (80.0-100.0) fL MCH (25.0-34.0) pg MCHC (32.0-36.0) g/dL RDW Std Deviation (36.4-46.3) fL RDW Coeff of Ajay (11.5-14.5) % Plt Count (130-400) K/uL MPV (9.4-12.4) fL Immature Gran % (Auto) % Neut % (Auto) % Lymph % (Auto) % Thurston % (Auto) % Eos % (Auto) % Baso % (Auto) % Neut # (Auto) (1.40-6.50) K/uL Lymph # (Auto) (1.20-3.40) K/uL Thurston # (Auto) (0.11-0.59) K/uL Eos # (Auto) (0.00-0.50) K/uL Baso # (Auto) (0.00-0.20) K/uL Immature Gran # (Auto) (0.01-0.20) K/uL Sodium 132 L (136-145) mmol/L Potassium 3.4 L (3.5-5.1) mmol/L Chloride 97 L (98-107) mmol/L Carbon Dioxide 21 (21-32) mmol/L Anion Gap 14 H (3-11) BUN 14 (6-23) mg/dl Creatinine 0.74 (0.6-1.2) mg/dl Est Cr Clr Drug Dosing 124.8 ml/min Est GFR ( Amer) 126.9 ml/min Est GFR (Non-Af Amer) 109.5 ml/min BUN/Creatinine Ratio 18.9 (10-20) Glucose 85 (70-99(Fasting)) mg/dl Calcium 9.3 (8.6-10.3) mg/dl Total Bilirubin 0.6 (0.2-1.0) mg/dl AST 20 (13-39) U/L ALT 13 (7-52) U/L Alkaline Phosphatase 186 H (34-104) U/L Total Protein 8.2 (6.0-8.3) gm/dl Albumin 4.3 (3.4-5.0) gm/dl Globulin 3.9 (2.5-4.0) gm/dl Albumin/Globulin Ratio 1.1 (0.9-2) Lipase 3 L (11-82) U/L Urine Color Yellow Urine Appearance Cloudy A (Clear) Urine pH 6.0 (4.5-7.5) Ur Specific Morrow 1.028 (1.000-1.030) Urine Protein 2+ H (Negative) Urine Glucose (UA) Negative (Negative) Urine Ketones 4+ H (Negative) Urine Blood 3+ H (Negative) Urine Nitrite Negative (Negative) Urine Bilirubin Negative (Negative) Urine Urobilinogen Negative (Negative) Ur Leukocyte Esterase 1+ H (Negative) Urine WBC (Auto) >30 H (0-5) /hpf Urine RBC (Auto) 0-4 (0-4) /hpf U Hyaline Cast (Auto) 5-10 H (0-5) /lpf U Epithel Cells (Auto) 10-20 H (0-5) /lpf Urine Bacteria (Auto) Negative (Negative) Granular Casts 1-5 H (0) /lpf Adenovirus (PCR) Not Detected (NotDetected) B. pertussis DNA (PCR) Not Detected (NotDetected) B.parapertussis DNA PCR Not Detected (NotDetected) C. pneumoniae DNA (PCR) Not Detected (NotDetected) Coronavirus OC43 (PCR) Not Detected (NotDetected) Coronavirus HKU1 (PCR) Not Detected (NotDetected) Coronavirus 229E (PCR) Not Detected (NotDetected) SARS-CoV-2 (PCR) Not Detected (NotDetected) Coronavirus NL63 (PCR) Not Detected (NotDetected) Human Metapneumovir PCR Not Detected (NotDetected) Influenza Type A (PCR) Not Detected (NotDetected) Influenza Type B (PCR) Not Detected (NotDetected) M. pneumoniae (PCR) Not Detected (NotDetected) Parainfluenza 1 (PCR) Not Detected (NotDetected) Parainfluenza 2 (PCR) Not Detected (NotDetected) Parainfluenza 3 (PCR) Not Detected (NotDetected) Parainfluenza 4 (PCR) Not Detected (NotDetected) RSV (PCR) Not Detected (NotDetected) Entero/Rhino (PCR) Not Detected (NotDetected) 03/05/23 Range/Units 10:48 WBC 19.26 H (4.8-10.8) K/ul RBC 5.03 (4.20-5.40) M/uL Hgb 13.2 (12.0-16.0) g/dl Hct 39.9 (37.0-47.0) % MCV 79.3 L (80.0-100.0) fL MCH 26.2 (25.0-34.0) pg MCHC 33.1 (32.0-36.0) g/dL RDW Std Deviation 47.6 H (36.4-46.3) fL RDW Coeff of Ajay 16.5 H (11.5-14.5) % Plt Count 366 (130-400) K/uL MPV 10.8 (9.4-12.4) fL Immature Gran % (Auto) 1.0 % Neut % (Auto) 88.3 % Lymph % (Auto) 6.8 % Thurston % (Auto) 3.2 % Eos % (Auto) 0.4 % Baso % (Auto) 0.3 % Neut # (Auto) 17.00 H (1.40-6.50) K/uL Lymph # (Auto) 1.31 (1.20-3.40) K/uL Thurston # (Auto) 0.62 H (0.11-0.59) K/uL Eos # (Auto) 0.08 (0.00-0.50) K/uL Baso # (Auto) 0.05 (0.00-0.20) K/uL Immature Gran # (Auto) 0.20 (0.01-0.20) K/uL Sodium (136-145) mmol/L Potassium (3.5-5.1) mmol/L Chloride (98-107) mmol/L Carbon Dioxide (21-32) mmol/L Anion Gap (3-11) BUN (6-23) mg/dl Creatinine (0.6-1.2) mg/dl Est Cr Clr Drug Dosing ml/min Est GFR ( Amer) ml/min Est GFR (Non-Af Amer) ml/min BUN/Creatinine Ratio (10-20) Glucose (70-99(Fasting)) mg/dl Calcium (8.6-10.3) mg/dl Total Bilirubin (0.2-1.0) mg/dl AST (13-39) U/L ALT (7-52) U/L Alkaline Phosphatase (34-104) U/L Total Protein (6.0-8.3) gm/dl Albumin (3.4-5.0) gm/dl Globulin (2.5-4.0) gm/dl Albumin/Globulin Ratio (0.9-2) Lipase (11-82) U/L Urine Color Urine Appearance (Clear) Urine pH (4.5-7.5) Ur Specific Morrow (1.000-1.030) Urine Protein (Negative) Urine Glucose (UA) (Negative) Urine Ketones (Negative) Urine Blood (Negative) Urine Nitrite (Negative) Urine Bilirubin (Negative) Urine Urobilinogen (Negative) Ur Leukocyte Esterase (Negative) Urine WBC (Auto) (0-5) /hpf Urine RBC (Auto) (0-4) /hpf U Hyaline Cast (Auto) (0-5) /lpf U Epithel Cells (Auto) (0-5) /lpf Urine Bacteria (Auto) (Negative) Granular Casts (0) /lpf Adenovirus (PCR) (NotDetected) B. pertussis DNA (PCR) (NotDetected) B.parapertussis DNA PCR (NotDetected) C. pneumoniae DNA (PCR) (NotDetected) Coronavirus OC43 (PCR) (NotDetected) Coronavirus HKU1 (PCR) (NotDetected) Coronavirus 229E (PCR) (NotDetected) SARS-CoV-2 (PCR) (NotDetected) Coronavirus NL63 (PCR) (NotDetected) Human Metapneumovir PCR (NotDetected) Influenza Type A (PCR) (NotDetected) Influenza Type B (PCR) (NotDetected) M. pneumoniae (PCR) (NotDetected) Parainfluenza 1 (PCR) (NotDetected) Parainfluenza 2 (PCR) (NotDetected) Parainfluenza 3 (PCR) (NotDetected) Parainfluenza 4 (PCR) (NotDetected) RSV (PCR) (NotDetected) Entero/Rhino (PCR) (NotDetected) Pelvic ultrasound is normal endometrium is 8 mm without any signs of retained products
[2023-03-05] MEDS: ACETAMINOPHEN 325 MG TAB PO PRN (19:46)
[2023-03-05] MEDS: FERROUS SULFATE 325 MG TAB PO SCH (21:00)
[2023-03-05] MEDS ORDERED: Nursing to Pharmacy Communication SCH (21:15)
[2023-03-05] MEDS: CLINDAMYCIN/D5W 900 MG/50 ML BAG IV SCH (21:43)
[2023-03-05] MEDS: GENTAMICIN SULFATE 420 MG in DEXTROSE 5% 100 ML IV SCH (22:18)
[2023-03-06] MEDS: ACETAMINOPHEN 325 MG TAB PO PRN (04:30)
[2023-03-06] MEDS: CLINDAMYCIN/D5W 900 MG/50 ML BAG IV SCH ×3 (05:49→23:08)
[2023-03-06] MEDS: D5W AND 1/2NSS + 20MEQ KCL 20 MEQ/1,000 ML BAG IV SCH ×2 (06:25→15:33)
[2023-03-06 06:31] LABS: Albumin Globulin Ratio 1.2 (0.9-2); BUN Creatinine Ratio 17.5 (10-20); Bilirubin,Total 0.3 mg/dl (0.2-1.0); Calcium 7.7 mg/dl (8.6-10.3); Est GFR (African American) 145.2 ml/min; Est GFR (Non-African American) 125.3 ml/min; Globulin 2.6 gm/dl (2.5-4.0); Potassium 3.2 mmol/L (3.5-5.1); Total Protein 5.6 gm/dl (6.0-8.3)
[2023-03-06 06:57] LABS: Basophils # (auto) 0.02 K/uL (0.00-0.20); Basophils % (auto) 0.2 %; Eosinophils # (auto) 0.04 K/uL (0.00-0.50); Eosinophils % (auto) 0.4 %; Hematocrit (blood only) 29.2 % (37.0-47.0); Hemoglobin 9.6 g/dl (12.0-16.0); Immature Granulocytes # (auto) 0.06 K/uL (0.01-0.20); Immature Granulocytes % (auto) 0.6 %; Lymphocytes # (auto) 0.98 K/uL (1.20-3.40); Lymphocytes % (auto) 10.3 %; Mean Corpuscular Hemoglobin 25.9 pg (25.0-34.0); Mean Corpuscular Hgb Conc 32.9 g/dL (32.0-36.0); Mean Corpuscular Volume 78.9 fL (80.0-100.0); Mean Platelet Volume 10.6 fL (9.4-12.4); Monocytes % (auto) 8.4 %; Neutrophils # (auto) 7.58 K/uL (1.40-6.50); Neutrophils % (auto) 80.1 %; Platelet Count 262 K/uL (130-400); RDW Coefficient of Variation 16.3 % (11.5-14.5); RDW Standard Deviation 47.2 fL (36.4-46.3); White Blood Count 9.48 K/ul (4.8-10.8)
[2023-03-06] MEDS: POTASSIUM CHLORIDE / WTR 10 MEQ/100 ML PLCT IV SCH ×2 (07:49→09:15)
[2023-03-06] MEDS ORDERED: IRON SUCROSE 200 MG in 0.9 % SODIUM CHLORIDE 100 ML IV ONE (08:00)
[2023-03-06] MEDS: PRENATAL VITAMIN 1 TAB PO SCH (09:15)
[2023-03-06] MEDS: FERROUS SULFATE 325 MG TAB PO SCH ×2 (09:15→21:58)
--- NOTE | 2023-03-06 10:40 | Gynecologic Progress Note ---
Date of Service March 06, 2023 Assessment & Plan Admission and Anticipated Discharge Date Admission Date: March 05, 2023 Subjective feeling much better this morning on IV antibiotics tolerated diet OOB OK voiding without difficulty or pain no abdominal pain vaginal bleeding slowed down Review of Systems Review of Systems: All systems reviewed & are unremarkable except as noted in HPI & below Physical Exam Constitutional: WD/WN, vitals as above Gastrointestinal (Abdomen): normal bowel sounds, soft, nontender, no hepatosplenomegaly no CVA tenderness Musculoskeletal: Extremities: extremities normal to inspection Skin: no rashes, warm and dry Neurologic: patellar DTR's 2+ bilat, sensation intact Psychiatric: A+Ox3, euthymic affect Results & Data Vital Signs (Past 12 Hours) Vital Signs Temp Pulse Pulse Resp BP Pulse Ox O2 Del Method 03/06/23 08:20 36.9 C 87 18 100/68 96 Room Air 03/06/23 04:10 37.7 C H 100 H 18 89/55 L 03/06/23 00:15 36.8 C 102 H 18 102/63 Laboratory Results 03/05/23 03/05/23 03/05/23 10:48 10:48 12:54 WBC 19.26 H RBC 5.03 Hgb 13.2 Hct 39.9 MCV 79.3 L MCH 26.2 MCHC 33.1 RDW Std Deviation 47.6 H RDW Coeff of Ajay 16.5 H Plt Count 366 MPV 10.8 Immature Gran % (Auto) 1.0 Neut % (Auto) 88.3 Lymph % (Auto) 6.8 Mckinley % (Auto) 3.2 Eos % (Auto) 0.4 Baso % (Auto) 0.3 Neut # (Auto) 17.00 H Lymph # (Auto) 1.31 Mckinley # (Auto) 0.62 H Eos # (Auto) 0.08 Baso # (Auto) 0.05 Immature Gran # (Auto) 0.20 Sodium 132 L Potassium 3.4 L Chloride 97 L Carbon Dioxide 21 Anion Gap 14 H BUN 14 Creatinine 0.74 Est Cr Clr Drug Dosing 124.8 Est GFR ( Amer) 126.9 Est GFR (Non-Af Amer) 109.5 BUN/Creatinine Ratio 18.9 Glucose 85 Lactate Calcium 9.3 Total Bilirubin 0.6 AST 20 ALT 13 Alkaline Phosphatase 186 H Total Protein 8.2 Albumin 4.3 Globulin 3.9 Albumin/Globulin Ratio 1.1 Lipase 3 L Urine Color Yellow Urine Appearance Cloudy A Urine pH 6.0 Ur Specific Wentworth 1.028 Urine Protein 2+ H Urine Glucose (UA) Negative Urine Ketones 4+ H Urine Blood 3+ H Urine Nitrite Negative Urine Bilirubin Negative Urine Urobilinogen Negative Ur Leukocyte Esterase 1+ H Urine WBC (Auto) >30 H Urine RBC (Auto) 0-4 U Hyaline Cast (Auto) 5-10 H U Epithel Cells (Auto) 10-20 H Urine Bacteria (Auto) Negative Granular Casts 1-5 H Adenovirus (PCR) B. pertussis DNA (PCR) B.parapertussis DNA PCR C. pneumoniae DNA (PCR) Coronavirus OC43 (PCR) Coronavirus HKU1 (PCR) Coronavirus 229E (PCR) SARS-CoV-2 (PCR) Coronavirus NL63 (PCR) Human Metapneumovir PCR Influenza Type A (PCR) Influenza Type B (PCR) M. pneumoniae (PCR) Parainfluenza 1 (PCR) Parainfluenza 2 (PCR) Parainfluenza 3 (PCR) Parainfluenza 4 (PCR) RSV (PCR) Entero/Rhino (PCR) 03/05/23 03/05/23 03/06/23 16:50 20:59 05:42 WBC 9.48 RBC 3.70 L Hgb 9.6 L D Hct 29.2 L MCV 78.9 L MCH 25.9 MCHC 32.9 RDW Std Deviation 47.2 H RDW Coeff of Ajay 16.3 H Plt Count 262 MPV 10.6 Immature Gran % (Auto) 0.6 Neut % (Auto) 80.1 Lymph % (Auto) 10.3 Mckinley % (Auto) 8.4 Eos % (Auto) 0.4 Baso % (Auto) 0.2 Neut # (Auto) 7.58 H Lymph # (Auto) 0.98 L Mckinley # (Auto) 0.80 H Eos # (Auto) 0.04 Baso # (Auto) 0.02 Immature Gran # (Auto) 0.06 Sodium Potassium Chloride Carbon Dioxide Anion Gap BUN Creatinine Est Cr Clr Drug Dosing Est GFR ( Amer) Est GFR (Non-Af Amer) BUN/Creatinine Ratio Glucose Lactate 1.1 Calcium Total Bilirubin AST ALT Alkaline Phosphatase Total Protein Albumin Globulin Albumin/Globulin Ratio Lipase Urine Color Urine Appearance Urine pH Ur Specific Wentworth Urine Protein Urine Glucose (UA) Urine Ketones Urine Blood Urine Nitrite Urine Bilirubin Urine Urobilinogen Ur Leukocyte Esterase Urine WBC (Auto) Urine RBC (Auto) U Hyaline Cast (Auto) U Epithel Cells (Auto) Urine Bacteria (Auto) Granular Casts Adenovirus (PCR) Not Detected B. pertussis DNA (PCR) Not Detected B.parapertussis DNA PCR Not Detected C. pneumoniae DNA (PCR) Not Detected Coronavirus OC43 (PCR) Not Detected Coronavirus HKU1 (PCR) Not Detected Coronavirus 229E (PCR) Not Detected SARS-CoV-2 (PCR) Not Detected Coronavirus NL63 (PCR) Not Detected Human Metapneumovir PCR Not Detected Influenza Type A (PCR) Not Detected Influenza Type B (PCR) Not Detected M. pneumoniae (PCR) Not Detected Parainfluenza 1 (PCR) Not Detected Parainfluenza 2 (PCR) Not Detected Parainfluenza 3 (PCR) Not Detected Parainfluenza 4 (PCR) Not Detected RSV (PCR) Not Detected Entero/Rhino (PCR) Not Detected 03/06/23 05:42 WBC RBC Hgb Hct MCV MCH MCHC RDW Std Deviation RDW Coeff of Ajay Plt Count MPV Immature Gran % (Auto) Neut % (Auto) Lymph % (Auto) Mckinley % (Auto) Eos % (Auto) Baso % (Auto) Neut # (Auto) Lymph # (Auto) Mckinley # (Auto) Eos # (Auto) Baso # (Auto) Immature Gran # (Auto) Sodium 136 Potassium 3.2 L Chloride 108 H Carbon Dioxide 22 Anion Gap 6 BUN 10 Creatinine 0.57 L Est Cr Clr Drug Dosing 162.0 Est GFR ( Amer) 145.2 Est GFR (Non-Af Amer) 125.3 BUN/Creatinine Ratio 17.5 Glucose 128 H Lactate Calcium 7.7 L Total Bilirubin 0.3 AST 13 ALT 8 Alkaline Phosphatase 120 H Total Protein 5.6 L D Albumin 3.0 L Globulin 2.6 Albumin/Globulin Ratio 1.2 Lipase Urine Color Urine Appearance Urine pH Ur Specific Wentworth Urine Protein Urine Glucose (UA) Urine Ketones Urine Blood Urine Nitrite Urine Bilirubin Urine Urobilinogen Ur Leukocyte Esterase Urine WBC (Auto) Urine RBC (Auto) U Hyaline Cast (Auto) U Epithel Cells (Auto) Urine Bacteria (Auto) Granular Casts Adenovirus (PCR) B. pertussis DNA (PCR) B.parapertussis DNA PCR C. pneumoniae DNA (PCR) Coronavirus OC43 (PCR) Coronavirus HKU1 (PCR) Coronavirus 229E (PCR) SARS-CoV-2 (PCR) Coronavirus NL63 (PCR) Human Metapneumovir PCR Influenza Type A (PCR) Influenza Type B (PCR) M. pneumoniae (PCR) Parainfluenza 1 (PCR) Parainfluenza 2 (PCR) Parainfluenza 3 (PCR) Parainfluenza 4 (PCR) RSV (PCR) Entero/Rhino (PCR)
[2023-03-06] MEDS: GENTAMICIN SULFATE 420 MG in DEXTROSE 5% 100 ML IV SCH (21:58)
--- NOTE | 2023-03-06 22:28 | Electrocardiogram Report ---
Test Reason : Blood Pressure : / mmHG Vent. Rate : 118 BPM Atrial Rate : 118 BPM P-R Int : 128 ms QRS Dur : 086 ms QT Int : 300 ms P-R-T Axes : 023 051 021 degrees QTc Int : 420 ms Sinus tachycardia Otherwise normal ECG No previous ECGs available Confirmed by Christiano Macedo ([id number] on 03/06/2023 10:28:32 PM Referred By: REFERRED SELF Confirmed By:Christiano Macedo
[2023-03-07] MEDS: D5W AND 1/2NSS + 20MEQ KCL 20 MEQ/1,000 ML BAG IV SCH ×2 (01:04→09:06)
[2023-03-07] MEDS: CLINDAMYCIN/D5W 900 MG/50 ML BAG IV SCH ×2 (06:15→13:58)
[2023-03-07 07:14] LABS: Basophils # (auto) 0.04 K/uL (0.00-0.20); Basophils % (auto) 0.5 %; Eosinophils # (auto) 0.07 K/uL (0.00-0.50); Eosinophils % (auto) 0.9 %; Hematocrit (blood only) 34.4 % (37.0-47.0); Immature Granulocytes # (auto) 0.09 K/uL (0.01-0.20); Immature Granulocytes % (auto) 1.1 %; Lymphocytes # (auto) 1.92 K/uL (1.20-3.40); Lymphocytes % (auto) 24.3 %; Mean Corpuscular Hemoglobin 25.9 pg (25.0-34.0); Mean Corpuscular Volume 81.1 fL (80.0-100.0); Mean Platelet Volume 10.6 fL (9.4-12.4); Monocytes # (auto) 0.64 K/uL (0.11-0.59); Monocytes % (auto) 8.1 %; Neutrophils # (auto) 5.13 K/uL (1.40-6.50); Neutrophils % (auto) 65.1 %; Platelet Count 358 K/uL (130-400); RDW Coefficient of Variation 16.7 % (11.5-14.5); RDW Standard Deviation 49.7 fL (36.4-46.3); Red Blood Count 4.24 M/uL (4.20-5.40); White Blood Count 7.89 K/ul (4.8-10.8)
[2023-03-07 07:18] LABS: Alanine Aminotransferase 9 U/L (7-52); Albumin Level 3.2 gm/dl (3.4-5.0); Alkaline Phosphatase 126 U/L (34-104); Anion Gap 5 (3-11); Aspartate Aminotransferase 12 U/L (13-39); Bilirubin,Total 0.3 mg/dl (0.2-1.0); Blood Urea Nitrogen 5 mg/dl (6-23); Calcium 8.4 mg/dl (8.6-10.3); Carbon Dioxide 26 mmol/L (21-32); Chloride 113 mmol/L (98-107); Creatinine Clr Calc Pharmacy 181.1 ml/min; Est GFR (African American) > 150.0 ml/min; Est GFR (Non-African American) 129.9 ml/min; Globulin 3.1 gm/dl (2.5-4.0); Glucose Fasting 94 mg/dl (70-99); Potassium 3.8 mmol/L (3.5-5.1); Sodium 144 mmol/L (136-145); Total Protein 6.3 gm/dl (6.0-8.3)
[2023-03-07] MEDS: PRENATAL VITAMIN 1 TAB PO SCH (08:59)
[2023-03-07] MEDS: FERROUS SULFATE 325 MG TAB PO SCH (08:59)
--- NOTE | 2023-03-07 09:07 | Gynecologic Progress Note ---
Date of Service March 07, 2023 Assessment & Plan Admission and Anticipated Discharge Date Admission Date: March 05, 2023 Subjective Patient is seen and examined. She feels well, no complaints. Much better. Ambulating without dizziness Voiding without difficulty Tolerating regular diet with out N&V Bleeding is minimal, no more odor. No fever/ chills/ CP/ SOB/ N&V/ Leg pain Breast feeding her baby during the day and pumping for the night. Desires d/c tonight. Vital Signs Temp Pulse Pulse Resp BP Pulse Ox O2 Del Method 03/06/23 23:45 36.9 C 97 H 18 101/68 03/06/23 20:10 36.8 C 03/06/23 19:02 37.9 C H 99 H 18 95/63 L 95 Room Air 03/06/23 15:35 37.4 C 98 H 16 107/71 97 Room Air 03/06/23 11:20 36.9 C 96 H 16 105/68 97 Room Air Intake and Output 03/06/23 03/07/23 03/07/23 22:59 06:59 14:59 Intake Total 1300.00 / 2716.75 810.5 / 2716.75 Output Total 590 / 1590 200 / 1590 Balance 710.00 / 1126.75 610.5 / 1126.75 Intake: IV 1300.00 / 2716.75 810.5 / 2716.75 Clindamycin/D5w 900 mg In 50 ml 50 / 50 @ 100 mls/hr IV Q8H KEEGAN Rx#: [id number] D5w and 1/2Nss + 20Meq KCl 20 1300.00 / 2456.25 650 / 2456.25 meq In 1,000 ml @ 125 mls/hr IV .Q8H KEEGAN Rx#:[id number] Gentamicin Sulfate 420 mg In 110.5 / 110.5 Dextrose 5% 100 ml @ 100 mls/hr IV Q24H KEEGAN Rx#:[id number] Output: Urine 590 / 1590 200 / 1590 Lab Results 03/05/23 03/05/23 03/05/23 Range/Units 10:48 10:48 12:54 WBC 19.26 H (4.8-10.8) K/ul RBC 5.03 (4.20-5.40) M/uL Hgb 13.2 (12.0-16.0) g/dl Hct 39.9 (37.0-47.0) % MCV 79.3 L (80.0-100.0) fL MCH 26.2 (25.0-34.0) pg MCHC 33.1 (32.0-36.0) g/dL RDW Std Deviation 47.6 H (36.4-46.3) fL RDW Coeff of Ajay 16.5 H (11.5-14.5) % Plt Count 366 (130-400) K/uL MPV 10.8 (9.4-12.4) fL Immature Gran % (Auto) 1.0 % Neut % (Auto) 88.3 % Lymph % (Auto) 6.8 % [place] % (Auto) 3.2 % Eos % (Auto) 0.4 % Baso % (Auto) 0.3 % Neut # (Auto) 17.00 H (1.40-6.50) K/uL Lymph # (Auto) 1.31 (1.20-3.40) K/uL [place] # (Auto) 0.62 H (0.11-0.59) K/uL Eos # (Auto) 0.08 (0.00-0.50) K/uL Baso # (Auto) 0.05 (0.00-0.20) K/uL Immature Gran # (Auto) 0.20 (0.01-0.20) K/uL Sodium 132 L (136-145) mmol/L Potassium 3.4 L (3.5-5.1) mmol/L Chloride 97 L (98-107) mmol/L Carbon Dioxide 21 (21-32) mmol/L Anion Gap 14 H (3-11) BUN 14 (6-23) mg/dl Creatinine 0.74 (0.6-1.2) mg/dl Est Cr Clr Drug Dosing 124.8 ml/min Est GFR ( Amer) 126.9 ml/min Est GFR (Non-Af Amer) 109.5 ml/min BUN/Creatinine Ratio 18.9 (10-20) Glucose 85 (70-99(Fasting)) mg/dl Fasting Glucose (70-99) mg/dl Lactate (0.4-2.0) mmol/L Calcium 9.3 (8.6-10.3) mg/dl Total Bilirubin 0.6 (0.2-1.0) mg/dl AST 20 (13-39) U/L ALT 13 (7-52) U/L Alkaline Phosphatase 186 H (34-104) U/L Total Protein 8.2 (6.0-8.3) gm/dl Albumin 4.3 (3.4-5.0) gm/dl Globulin 3.9 (2.5-4.0) gm/dl Albumin/Globulin Ratio 1.1 (0.9-2) Lipase 3 L (11-82) U/L Urine Color Yellow Urine Appearance Cloudy A (Clear) Urine pH 6.0 (4.5-7.5) Ur Specific [place] 1.028 (1.000-1.030) Urine Protein 2+ H (Negative) Urine Glucose (UA) Negative (Negative) Urine Ketones 4+ H (Negative) Urine Blood 3+ H (Negative) Urine Nitrite Negative (Negative) Urine Bilirubin Negative (Negative) Urine Urobilinogen Negative (Negative) Ur Leukocyte Esterase 1+ H (Negative) Urine WBC (Auto) >30 H (0-5) /hpf Urine RBC (Auto) 0-4 (0-4) /hpf U Hyaline Cast (Auto) 5-10 H (0-5) /lpf U Epithel Cells (Auto) 10-20 H (0-5) /lpf Urine Bacteria (Auto) Negative (Negative) Granular Casts 1-5 H (0) /lpf Adenovirus (PCR) (NotDetected) B. pertussis DNA (PCR) (NotDetected) B.parapertussis DNA PCR (NotDetected) C. pneumoniae DNA (PCR) (NotDetected) Coronavirus OC43 (PCR) (NotDetected) Coronavirus HKU1 (PCR) (NotDetected) Coronavirus 229E (PCR) (NotDetected) SARS-CoV-2 (PCR) (NotDetected) Coronavirus NL63 (PCR) (NotDetected) Human Metapneumovir PCR (NotDetected) Influenza Type A (PCR) (NotDetected) Influenza Type B (PCR) (NotDetected) M. pneumoniae (PCR) (NotDetected) Parainfluenza 1 (PCR) (NotDetected) Parainfluenza 2 (PCR) (NotDetected) Parainfluenza 3 (PCR) (NotDetected) Parainfluenza 4 (PCR) (NotDetected) RSV (PCR) (NotDetected) Entero/Rhino (PCR) (NotDetected) 03/05/23 03/05/23 03/06/23 Range/Units 16:50 20:59 05:42 WBC 9.48 (4.8-10.8) K/ul RBC 3.70 L (4.20-5.40) M/uL Hgb 9.6 L D (12.0-16.0) g/dl Hct 29.2 L (37.0-47.0) % MCV 78.9 L (80.0-100.0) fL MCH 25.9 (25.0-34.0) pg MCHC 32.9 (32.0-36.0) g/dL RDW Std Deviation 47.2 H (36.4-46.3) fL RDW Coeff of Ajay 16.3 H (11.5-14.5) % Plt Count 262 (130-400) K/uL MPV 10.6 (9.4-12.4) fL Immature Gran % (Auto) 0.6 % Neut % (Auto) 80.1 % Lymph % (Auto) 10.3 % [place] % (Auto) 8.4 % Eos % (Auto) 0.4 % Baso % (Auto) 0.2 % Neut # (Auto) 7.58 H (1.40-6.50) K/uL Lymph # (Auto) 0.98 L (1.20-3.40) K/uL [place] # (Auto) 0.80 H (0.11-0.59) K/uL Eos # (Auto) 0.04 (0.00-0.50) K/uL Baso # (Auto) 0.02 (0.00-0.20) K/uL Immature Gran # (Auto) 0.06 (0.01-0.20) K/uL Sodium (136-145) mmol/L Potassium (3.5-5.1) mmol/L Chloride (98-107) mmol/L Carbon Dioxide (21-32) mmol/L Anion Gap (3-11) BUN (6-23) mg/dl Creatinine (0.6-1.2) mg/dl Est Cr Clr Drug Dosing ml/min Est GFR ( Amer) ml/min Est GFR (Non-Af Amer) ml/min BUN/Creatinine Ratio (10-20) Glucose (70-99(Fasting)) mg/dl Fasting Glucose (70-99) mg/dl Lactate 1.1 (0.4-2.0) mmol/L Calcium (8.6-10.3) mg/dl Total Bilirubin (0.2-1.0) mg/dl AST (13-39) U/L ALT (7-52) U/L Alkaline Phosphatase (34-104) U/L Total Protein (6.0-8.3) gm/dl Albumin (3.4-5.0) gm/dl Globulin (2.5-4.0) gm/dl Albumin/Globulin Ratio (0.9-2) Lipase (11-82) U/L Urine Color Urine Appearance (Clear) Urine pH (4.5-7.5) Ur Specific [place] (1.000-1.030) Urine Protein (Negative) Urine Glucose (UA) (Negative) Urine Ketones (Negative) Urine Blood (Negative) Urine Nitrite (Negative) Urine Bilirubin (Negative) Urine Urobilinogen (Negative) Ur Leukocyte Esterase (Negative) Urine WBC (Auto) (0-5) /hpf Urine RBC (Auto) (0-4) /hpf U Hyaline Cast (Auto) (0-5) /lpf U Epithel Cells (Auto) (0-5) /lpf Urine Bacteria (Auto) (Negative) Granular Casts (0) /lpf Adenovirus (PCR) Not Detected (NotDetected) B. pertussis DNA (PCR) Not Detected (NotDetected) B.parapertussis DNA PCR Not Detected (NotDetected) C. pneumoniae DNA (PCR) Not Detected (NotDetected) Coronavirus OC43 (PCR) Not Detected (NotDetected) Coronavirus HKU1 (PCR) Not Detected (NotDetected) Coronavirus 229E (PCR) Not Detected (NotDetected) SARS-CoV-2 (PCR) Not Detected (NotDetected) Coronavirus NL63 (PCR) Not Detected (NotDetected) Human Metapneumovir PCR Not Detected (NotDetected) Influenza Type A (PCR) Not Detected (NotDetected) Influenza Type B (PCR) Not Detected (NotDetected) M. pneumoniae (PCR) Not Detected (NotDetected) Parainfluenza 1 (PCR) Not Detected (NotDetected) Parainfluenza 2 (PCR) Not Detected (NotDetected) Parainfluenza 3 (PCR) Not Detected (NotDetected) Parainfluenza 4 (PCR) Not Detected (NotDetected) RSV (PCR) Not Detected (NotDetected) Entero/Rhino (PCR) Not Detected (NotDetected) 03/06/23 03/07/23 03/07/23 Range/Units 05:42 06:24 06:24 WBC 7.89 (4.8-10.8) K/ul RBC 4.24 (4.20-5.40) M/uL Hgb 11.0 L (12.0-16.0) g/dl Hct 34.4 L (37.0-47.0) % MCV 81.1 (80.0-100.0) fL MCH 25.9 (25.0-34.0) pg MCHC 32.0 (32.0-36.0) g/dL RDW Std Deviation 49.7 H (36.4-46.3) fL RDW Coeff of Ajay 16.7 H (11.5-14.5) % Plt Count 358 (130-400) K/uL MPV 10.6 (9.4-12.4) fL Immature Gran % (Auto) 1.1 % Neut % (Auto) 65.1 % Lymph % (Auto) 24.3 % [place] % (Auto) 8.1 % Eos % (Auto) 0.9 % Baso % (Auto) 0.5 % Neut # (Auto) 5.13 (1.40-6.50) K/uL Lymph # (Auto) 1.92 (1.20-3.40) K/uL [place] # (Auto) 0.64 H (0.11-0.59) K/uL Eos # (Auto) 0.07 (0.00-0.50) K/uL Baso # (Auto) 0.04 (0.00-0.20) K/uL Immature Gran # (Auto) 0.09 (0.01-0.20) K/uL Sodium 136 144 (136-145) mmol/L Potassium 3.2 L 3.8 (3.5-5.1) mmol/L Chloride 108 H 113 H (98-107) mmol/L Carbon Dioxide 22 26 (21-32) mmol/L Anion Gap 6 5 (3-11) BUN 10 5 L (6-23) mg/dl Creatinine 0.57 L 0.51 L (0.6-1.2) mg/dl Est Cr Clr Drug Dosing 162.0 181.1 ml/min Est GFR ( Amer) 145.2 > 150.0 ml/min Est GFR (Non-Af Amer) 125.3 129.9 ml/min BUN/Creatinine Ratio 17.5 (10-20) Glucose 128 H (70-99(Fasting)) mg/dl Fasting Glucose 94 (70-99) mg/dl Lactate (0.4-2.0) mmol/L Calcium 7.7 L 8.4 L (8.6-10.3) mg/dl Total Bilirubin 0.3 0.3 (0.2-1.0) mg/dl AST 13 12 L (13-39) U/L ALT 8 9 (7-52) U/L Alkaline Phosphatase 120 H 126 H (34-104) U/L Total Protein 5.6 L D 6.3 (6.0-8.3) gm/dl Albumin 3.0 L 3.2 L (3.4-5.0) gm/dl Globulin 2.6 3.1 (2.5-4.0) gm/dl Albumin/Globulin Ratio 1.2 1.0 (0.9-2) Lipase (11-82) U/L Urine Color Urine Appearance (Clear) Urine pH (4.5-7.5) Ur Specific [place] (1.000-1.030) Urine Protein (Negative) Urine Glucose (UA) (Negative) Urine Ketones (Negative) Urine Blood (Negative) Urine Nitrite (Negative) Urine Bilirubin (Negative) Urine Urobilinogen (Negative) Ur Leukocyte Esterase (Negative) Urine WBC (Auto) (0-5) /hpf Urine RBC (Auto) (0-4) /hpf U Hyaline Cast (Auto) (0-5) /lpf U Epithel Cells (Auto) (0-5) /lpf Urine Bacteria (Auto) (Negative) Granular Casts (0) /lpf Adenovirus (PCR) (NotDetected) B. pertussis DNA (PCR) (NotDetected) B.parapertussis DNA PCR (NotDetected) C. pneumoniae DNA (PCR) (NotDetected) Coronavirus OC43 (PCR) (NotDetected) Coronavirus HKU1 (PCR) (NotDetected) Coronavirus 229E (PCR) (NotDetected) SARS-CoV-2 (PCR) (NotDetected) Coronavirus NL63 (PCR) (NotDetected) Human Metapneumovir PCR (NotDetected) Influenza Type A (PCR) (NotDetected) Influenza Type B (PCR) (NotDetected) M. pneumoniae (PCR) (NotDetected) Parainfluenza 1 (PCR) (NotDetected) Parainfluenza 2 (PCR) (NotDetected) Parainfluenza 3 (PCR) (NotDetected) Parainfluenza 4 (PCR) (NotDetected) RSV (PCR) (NotDetected) Entero/Rhino (PCR) (NotDetected) PE: General: Alert, orientedx3, NAD Abd: soft, NT, fundus firm, below Umbilicus Perineum intact, Lochia rubra minimal, no odor. Ext; NT, no edema AP: 27 yo s/p , ppd# 8, admitted for pp endometritis on 03/05, on IV AB VSS Afebrile doing well Continue to monitor, IV AB until tonight 48 hours All questions were answered D/C home with PO AB Results & Data Vital Signs (Past 12 Hours) Vital Signs Temp Pulse Resp BP 03/06/23 23:45 36.9 C 97 H 18 101/68
[2023-03-07] MEDS ORDERED: Nursing to Pharmacy Communication SCH (13:00)
[2023-03-07] MEDS ORDERED: AMOXICILLIN/CLAVULANATE 875 MG TAB PO SCH ×4 (17:00)
[2023-03-07] MEDS: GENTAMICIN SULFATE 420 MG in DEXTROSE 5% 100 ML IV SCH (17:21)
--- NOTE | 2023-03-18 10:21 | Discharge Summary ---
Date of Service March 18, 2023 Discharge Data Consultations 03/05/23 17:05 ED Decision to Admit Stat Hospital Course (1) endometritis: Patient is a 27-year-old -0-0-2 who was status post spontaneous vaginal delivery on February 27 and was discharged on March 01. She presented to ER on March 05 with persistent fever, nausea, lower abdominal pain for the last 3 days. Her white blood cell count was elevated and decision was made to admit her for endometritis for IV antibiotics. She was admitted on March 05 and received IV antibiotics for 48 hours and discharged on March 07 with p.o. antibiotics. Her hospital course was uneventful. Her temperature went down after 24 hours of antibiotics and white blood cell count decreased significantly on next day and remained within normal limits on the day of discharge. She clinically improved with decreased pain, nausea and she was able to eat regular diet and keep it down. Her bowel and bladder functions were normal. Her bleeding was minimal. She was discharged home on Augmentin twice daily for 7 days and to follow-up in office. Discharge instructions were given when to call and prescriptions were written. All questions were answered. (2) fever:
== END 2023-03-07 19:01 | disposition home or self-care (01) | DRG 776 ==
LOC: 4E2 09:30 → ED 09:30 → INTOOBSV 17:12 → OBSVTOIN 17:12 → 4E2 20:08